=== PATIENT | female | born 1975 | race Caucasian/White ===

== ENCOUNTER → 2021-02-17 10:12 | Outpatient (BNVA) | payer MEDICARE, MEDICAID, SELFPAY | PROVIDERS: Visit Provider Physician Assistant | DX: M77.11 Lateral epicondylitis, right elbow (principal); M77.01 Medial epicondylitis, right elbow | CPT/HCPCS: 20551; 99202; J1020 ==

== ENCOUNTER → 2021-05-03 13:14 | Outpatient (BNVA) | payer MEDICARE, MEDICAID, SELFPAY | PROVIDERS: PCP Pediatrics; Visit Provider Physician Assistant | DX: M77.10 Lateral epicondylitis, unspecified elbow (principal) | CPT/HCPCS: 99212 ==

== ENCOUNTER 2021-06-15 14:00 | Outpatient (RCR) | payer MEDICARE, MEDICAID, SELFPAY | END 2022-03-20 11:37 | disposition home or self-care (01) | LOC: HO.OT 14:00 | PROVIDERS: PCP Pediatrics; Visit Provider Physician Assistant | DX: M77.10 Lateral epicondylitis, unspecified elbow (principal) | CPT/HCPCS: 29125; 97035; 97110; 97165; 97760 ==

== ENCOUNTER 2023-11-28 10:49 | Outpatient (AMB) | payer MEDICARE, MEDICAID, SELFPAY ==
--- NOTE | 2023-11-28 10:51 | MHC.OFFVIS ---
Intake Intake Visit Reasons: OV-B/L elbow injection-last inj. 05/03/21 Intake Note: Yandy a 48 year old female presents today for a follow up of bilateral elbow, last right elbow injection 05/03/21. Patient reports injection provided her good relief until about a month ago. She has complaints of bilateral elbow pain for about a month and is requesting cortisone injections. Patient also has complaints of bilateral shoulder pain with her right shoulder being the worse. Hx of rt RTC on 01/28/20 with KI at [facility]. States constant irritation, limited ROM and intermittent numbness. Allergies cephalexin [From KEFLEX] Allergy (Intermediate, Unverified 11/28/23 10:53) HIVES Penicillins Allergy (Intermediate, Unverified 11/28/23 10:53) HIVES TAPE,PAPER Allergy (Intermediate, Uncoded 11/28/23 10:53) REDNESS keflex Allergy (Unknown, Uncoded 11/28/23 10:53) unknown paper tape Allergy (Unknown, Uncoded 11/28/23 10:53) Unknown penicillin Allergy (Unknown, Uncoded 11/28/23 10:53) Unknown HPI OV-B/L elbow injection-last inj. 05/03/21 HPI Details 48-year-old female who returns to the office today for a follow-up of bilateral elbow pain for a month. She had her last right elbow injection on 05/03/21 which provided her good relief until about a month ago. 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 She also c/o numbness and tingling in her which radiates from her elbow up to her shoulder. Her numbness is worsened with being relaxed while watching TV. She is interested in having bilateral elbow injections. She also reports she has pain, achiness, weakness and limited ROM in her bilateral shoulders which is worse on her right shoulder. She finds difficulty with overhead reaching. She has a history of RTC [place] [address] Gramaoj. She does not have a history of diabetes. 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 No erythema or swelling. ROM full without pain. Tenderness over the lateral epicondyle and pain with resisted wrist extension. NVI. Bilateral shoulder normal to inspection. Tenderness over the bicipital groove and along the deltoid region of the shoulder. Forward flexion to 175, external rotation to 90, internal rotation to S1. 5/5 RTC strength. Positive Gaona. NVI. Office Procedures Joint Injection/Drain Joint Injection/Drain Primary Site: left tennis elbow Secondary Site: right tennis elbow Prep: site was prepped using aseptic technique, ethochloride spray was applied and injection warnings given Injected: 40 mg of, 1% plain lidocaine and decadron Procedure: The patient tolerated the procedure well and there was some relief with the local anesthesia Coding 60244 - Epicondyle Procedure code (CPT) selection complete Assessment & Plan Assessment & Plan (1) Tennis elbow: Code(s): M77.10 - Lateral epicondylitis, unspecified elbow Qualifiers: Laterality: bilateral Qualified Code(s): M77.11 - Lateral epicondylitis, right elbow; M77.12 - Lateral epicondylitis, left elbow (2) Tendinitis of right rotator cuff: Code(s): M75.81 - Other shoulder lesions, right shoulder Plan We discussed options today which include steroid injection. They did consent to move forward with the bilateral elbow injection, which was tolerated well. I recommended rest, ice and elevation and OTC anti-inflammatories PRN for discomfort. If symptoms persist or worsens over the next 6-8 weeks, patient will contact the office. She was also given a handout of home exercises for her elbow and I did explain that modification of activities is important in reducing flareups. She was referred to a course of physical therapy for her bilateral shoulder. If she continues to have discomfort in her shoulder and limitations with activities, she will contact the office for an MRI, otherwise she will follow-up as needed. Orders: Orders PT Evaluation and Treatment Today M75.81 - Other shoulder lesions, right shoulder Patient Instructions: Scribed for Erin Alcazar PA-C, by Mahendra Hayden medical service representative, on 11/28/2023 at 10:45 AM BRIAN. Erin Locke PA-C, have personally reviewed and agree with the information entered by the scribe. Coding Level of Care Code Est Pt Level 3 (23935) Diagnoses Lateral epicondylitis of both elbows M77.11; M77.12 Laterality: bilateral Tendinitis of right rotator cuff M75.81 CPT Codes Coding - Joint 2: 11090 - Epicondyle ([id number])
== END 2023-11-28 11:33 | disposition home or self-care (01) ==
PROVIDERS: PCP Pediatrics; Visit Provider Physician Assistant
DX: M77.11 Lateral epicondylitis, right elbow (principal); M77.12 Lateral epicondylitis, left elbow; M75.81 Other shoulder lesions, right shoulder
CPT/HCPCS: 20550; 99213

== ENCOUNTER → 2023-11-28 10:49 | Outpatient (BNVA) | payer MEDICARE, MEDICAID, SELFPAY | PROVIDERS: PCP Pediatrics; Visit Provider Physician Assistant | DX: M77.11 Lateral epicondylitis, right elbow (principal); M77.12 Lateral epicondylitis, left elbow; M75.81 Other shoulder lesions, right shoulder | CPT/HCPCS: 20550; 99212; J1100 ==

== ENCOUNTER 2024-01-09 10:00 | Outpatient (RCR) | payer MEDICARE, MEDICAID, SELFPAY ==
--- NOTE | 2023-12-17 13:02 | MHC.PT.EP ---
[facility] [place] Office [place] Office [place] Office [address] Tomas Jordan [address] [phone] F: [phone] F: [phone] F: [phone] F: [phone] Physical Therapy Plan of Care Date of Evaluation: 12/16/23 Date of Surgery: Diagnosis: B shoulder pain Assessment: Pt is a 48yo female who presents with B shoulder pain, noted to have significant postural impairments. Skilled PT indicated to reduce pain, promote B shoulder ROM, improved cervicothoracic posture, and teach HEP to maintain mobility independently. Pt is motivated to participate with goal to reduce shoulder pain to improve her mobility especially when she works. Frequency and Duration: The patient will be seen 2x/week, x 4 weeks Short Term Goals: 1. In 2 weeks, patient will be I with phase 1 HEP including ROM, isometrics, and postural corrections. 2. In 2 weeks, patient will improve B shoulder elevation 10 degrees. 3. In 2 weeks, patient will be able to maintain SRD b/l during resisted ER and periscap exercise. Health Care Coach Goals: 1. In 4 weeks, patient will be able to hold cervicothoracic posture in neutral during standing exercise x 5 minutes. 2. In 4 weeks, patient will report >=50% decrease of pain B shoulders. 3. 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 Treatment Plan: Modalities to reduce pain, spasms and effusion. Manual therapy to restore motion and function. Therapeutic exercise to improve strength and flexibility. Neuromuscular re-education for posture and balance. Therapeutic activities to return to functional activities of daily living. Electronically signed by: Julissa Duong PT, DPT Please sign and return to therapist. Thank you for your referral.
--- NOTE | 2024-04-27 13:19 | MHC.PT.DC ---
[facility] [place] Office [place] Office [place] Office [address] Tomas Jordan [address] [phone] F: [phone] F: [phone] F: [phone] F: [phone] Physical Therapy Discharge Report Diagnosis: B shoulder pain Date of Surgery: Date of Evaluation: 12/16/23 Date of Discharge: 01/09/24 Treatments to Date: 8 Cancellations to Date: 1 No Shows to Date: Discharge Status: Achieved Goals Improved Function Independent with HEP Discharge Summary: Pt referred to PT for B shoulder pain. Focus of PT sessions including postural correction exercises, periscap strengthening, and improvement in body mechanics. Pt with good compliance with postural corrections at home. ER L shoulder improved to 50 degrees. Reduced pain and improved exercise lj on this date. Pt recommended to continue with HEP to manage symptoms, and to continue to address posture. D/C to HEP at this time. Thank you for this referral. Electronically signed by: Julissa Duong PT, DPT Please sign and return to therapist. Thank you for your referral.
== END 2024-04-27 13:19 | disposition home or self-care (01) ==
LOC: HO.PT 10:00
PROVIDERS: PCP Pediatrics; Visit Provider Physician Assistant
DX: M75.81 Other shoulder lesions, right shoulder (principal)
CPT/HCPCS: 97110; 97140; 97162; 97530

== ENCOUNTER 2024-02-12 13:33 | Outpatient (REF) | payer MEDICARE, MEDICAID, SELFPAY ==
--- NOTE | ~2024-02-12 | XR_ITS ---
EXAMINATION: XR SHOULDER, RIGHT CLINICAL INFORMATION: Right shoulder pain COMPARISON: None available. TECHNIQUE: AP external rotation, Grashey, scapular Y, and axillary views of the right shoulder. FINDINGS: There is productive change about the greater tuberosity but no fracture, dislocation or destructive process or erosive change. XR/XR shoulder RT min 2V IMPRESSION: Mild degenerative change along the superior lateral margin of the humeral head.
== END 2024-02-12 13:34 | disposition home or self-care (01) ==
LOC: HO.HOSX 13:33
PROVIDERS: PCP Pediatrics; Visit Provider Physician Assistant
DX: M25.511 Pain in right shoulder (principal); M75.81 Other shoulder lesions, right shoulder
CPT/HCPCS: 20610; 73030; 99212; J1040; J1100

== ENCOUNTER 2024-02-12 13:33 | Outpatient (AMB) | payer MEDICARE, MEDICAID, SELFPAY ==
--- NOTE | 2024-02-12 13:37 | MHC.OFFVIS ---
Intake Intake Visit Reasons: OV - right shoulder tendinitis Intake Note: Yandy is a 48 year old right hand dominant female who presents today for a follow up of her left shoulder tendinitis. Patient states that her pain has gotten a bit worse after going to PT. She reports that her pain is moving down to her elbow. Patient finds relief with icing. Allergies cephalexin [From KEFLEX] Allergy (Intermediate, Unverified 11/28/23 10:53) HIVES Penicillins Allergy (Intermediate, Unverified 11/28/23 10:53) HIVES TAPE,PAPER Allergy (Intermediate, Uncoded 11/28/23 10:53) REDNESS keflex Allergy (Unknown, Uncoded 11/28/23 10:53) unknown paper tape Allergy (Unknown, Uncoded 11/28/23 10:53) Unknown penicillin Allergy (Unknown, Uncoded 11/28/23 10:53) Unknown HPI OV - right shoulder tendinitis HPI Details 48-year-old right hand dominant female who returns to the office today for a follow-up of right shoulder pain. She continues to have pain in her shoulder which has been moving down to her elbow. She states she has had undergone physical therapy which made her pain a bit worse. She finds relief with icing. She had an elbow injection in the past. She has no other concerns today. 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 Tenderness over the bicipital groove and along the deltoid region of the shoulder. Forward flexion to 175, external rotation to 90, internal rotation to S1. 5/5 RTC strength. Negative Gaona and cross body abduction. NVI. Office Procedures Joint Injection/Drain Joint Injection/Drain Primary Site: right shoulder Prep: site was prepped using aseptic technique, ethochloride spray was applied and injection warnings given Injected: 80 mg of, DepoMedrol, with 8 mL of, 1% plain lidocaine and in the subcromial space Approach Used: posterolateral Procedure: The patient tolerated the procedure well and there was some relief with the local anesthesia Coding 15266 - Glenohumeral/Tronchanteric Bursa/Intraarticular Procedure code (CPT) selection complete Results Reviewed Results Reviewed: Xrays were obtained in the office today and personally reviewed by me show well preserved joint space Assessment & Plan Assessment & Plan (1) Tendinitis of right rotator cuff: Code(s): M75.81 - Other shoulder lesions, right shoulder Plan We discussed options today which include steroid injection. They did consent to move forward with the right shoulder injection, which was tolerated well. I recommended rest, ice and elevation and OTC anti-inflammatories PRN for discomfort. If symptoms persist or worsens over the next 6-8 weeks, patient will contact the office, otherwise follow-up as needed. Orders: Orders XR shoulder RT min 2V Today M25.511 - Pain in right shoulder Patient Instructions: Scribed for Erin Alcazar PA-C, by Mahendra Hayden director medical surgical, on 02/12/2024 at 1:30 PM EST. Erin Locke PA-C, have personally reviewed and agree with the information entered by the scribe. Coding Level of Care Code Est Pt Level 3 (19245) Diagnoses Tendinitis of right rotator cuff M75.81 CPT Codes Coding - Joint 7: 74016 - Glenohumeral/Tronchanteric Bursa/Intraarticular ([id number])
== END 2024-02-12 15:16 | disposition home or self-care (01) ==
PROVIDERS: PCP Pediatrics; Visit Provider Physician Assistant
DX: M75.81 Other shoulder lesions, right shoulder (principal)
CPT/HCPCS: 20610; 99213

== ENCOUNTER 2024-05-06 12:58 | Outpatient (AMB) | payer MEDICARE, MEDICAID, SELFPAY ==
--- NOTE | 2024-05-06 13:14 | A.OFFVIS_ITS ---
Vital Signs 05/06/24 13:17 Height 5 ft 5 in Weight 219 lb BMI 36.4 Intake Visit Reasons: OV - RT shoulder pain, worsened after lifting box Intake Note: Yandy is a 48 year old right hand dominant female who presents today for a follow up of her right shoulder. Patient reports an increase of pain with lifting a box about 2-3 weeks ago. She currently has constant achy discomfort that is radiating into her elbow. States no strength in her arm. Denies numbness and tingling. Finds little to no relief with taking Tylenol and Advil, states she is not suppose to be taking Advil however this provides her with some relief. Allergies cephalexin [From KEFLEX] Allergy (Intermediate, Unverified 05/06/24 13:20) HIVES Penicillins Allergy (Intermediate, Unverified 05/06/24 13:20) HIVES TAPE,PAPER Allergy (Intermediate, Uncoded 05/06/24 13:20) REDNESS keflex Allergy (Unknown, Uncoded 05/06/24 13:20) unknown paper tape Allergy (Unknown, Uncoded 05/06/24 13:20) Unknown penicillin Allergy (Unknown, Uncoded 05/06/24 13:20) Unknown Medication List - Last Reconciled 05/06/24 by Erin Alcazar PA-C aripiprazole (Abilify) 30 mg PO DAILY buprenorphine-naloxone 8-2 mg (Suboxone) 1 film buccal DAILY dextroamphetamine-amphetamine 20 mg (Adderall) 20 mg PO DAILY dextroamphetamine-amphetamine 30 mg (Adderall) 30 mg PO DAILY omeprazole 40 mg PO BID HPI HPI OV - RT shoulder pain, worsened after lifting box: Details: 49-year-old right hand dominant female who returns to the office today for a follow-up of right shoulder pain. She reports her pain worsened after lifting a box about 2-3 weeks ago. She currently states she has constant achy discomfort that radiates down into her elbow. She feels no strength in her arm. She denies any numbness or tingling. She finds minimal relief with Tylenol and Advil. 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 Tenderness along the proximal bicep tendon around the extensor muscle belly of the bicep. Forward flexion to 175, external rotation to 90, internal rotation to S1. Pain and weakness with RTC strength when compared to contralateral side. Negative Gaona and cross body abduction. NVI. Assessment & Plan Assessment & Plan (1) Tendinitis of right rotator cuff: Code(s): M75.81 - Other shoulder lesions, right shoulder Category: Medical Plan An MRI of the right shoulder was ordered to further evaluate the extent of her RTC. She will see me back once the scan is complete. Orders: Orders MR shoulder RT wo con 05/06/24 M77.8 - Other enthesopathies, not elsewhere classified Patient Instructions: Scribed for Erin Alcazar PA-C, by Mahendra Hayden medical oncology physician, on 05/06/2024 at 12:45 PM EST.? I, Erin Alcazar PA-C, have personally reviewed and agree with the information entered by the scribe. Coding Level of Care Code Est Pt Level 3 (02311) Diagnoses Tendinitis of right rotator cuff M75.81
[2024-05-06 13:17] VITALS: BMI 36.4
== END 2024-05-06 14:27 | disposition home or self-care (01) ==
PROVIDERS: PCP Pediatrics; Visit Provider Physician Assistant
DX: M75.81 Other shoulder lesions, right shoulder (principal)
CPT/HCPCS: 99213

== ENCOUNTER → 2024-05-06 12:58 | Outpatient (BNVA) | payer MEDICARE, MEDICAID, SELFPAY | PROVIDERS: PCP Pediatrics; Visit Provider Physician Assistant | DX: M75.81 Other shoulder lesions, right shoulder (principal) | CPT/HCPCS: 99212 ==

== ENCOUNTER 2024-05-20 07:47 | Outpatient (REF) | payer MEDICARE, MEDICAID, SELFPAY ==
--- NOTE | ~2024-05-20 | XR_ITS ---
EXAMINATION: XR CLAVICLE, LEFT CLINICAL INFORMATION: Fracture. COMPARISON: None available. TECHNIQUE: Two views of the left clavicle. FINDINGS: Oblique fracture through the middle third of the left clavicle with superior displacement of the proximal fracture fragment measuring up to 2.6 cm in craniocaudal dimension. No new bone/callus formation. No acromioclavicular joint space widening. No joint space narrowing or marginal osteophytes. No osseous erosion. No abnormal soft tissue calcification. XR/XR clavicle LT IMPRESSION: Displaced fracture through the middle third of the left clavicle.
== END 2024-05-20 07:48 | disposition home or self-care (01) ==
LOC: HO.HOSX 07:47
DX: S42.022A Displaced fracture of shaft of left clavicle, initial encounter for closed fracture (principal)
CPT/HCPCS: 73000

== ENCOUNTER 2024-05-20 11:35 | Outpatient (AMB) | payer OTHER, MEDICARE, MEDICAID, SELFPAY ==
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
== END 2024-05-20 12:38 | disposition home or self-care (01) ==
PROVIDERS: PCP Pediatrics
DX: S42.022A Displaced fracture of shaft of left clavicle, initial encounter for closed fracture (principal)
CPT/HCPCS: 99204

== ENCOUNTER 2024-05-22 11:59 | Day surgery (SDC) | payer MEDICARE, MEDICAID, SELFPAY ==
[2024-05-22] VITALS (7 sets, daily range): BP systolic 125–146; BP diastolic 61–85; PULSE 77–87; RESP 15–18; TEMP 36.2–37.2; O2SAT 97–99; BMI 30.8
--- NOTE | ~2024-05-22 | FL_ITS ---
EXAMINATION: XR FLUOROSCOPY WITH IMAGES CLINICAL INFORMATION: Left clavicle ORIF. COMPARISON: None available. TECHNIQUE: Fluoroscopy Supervised By: Dr. Sarkis Canales. Fluoroscopy Time: 0.2 minutes. Cumulative Dose: 2.09 mGy. DAP: 0.0363 Gycm2. Images: 6. FINDINGS: Intraoperative fluoroscopy and spot films were performed during a procedure in the OR. Sequential imaging demonstrates a plate and screw device overlying the mid left clavicular fracture. Please correlate with Dr. Canales's report for complete details. FL/FL guidance in OR IMPRESSION: Intraoperative fluoroscopy and spot films were obtained. Please see Dr. Canales's report for complete details.
[2024-05-22 12:51] LABS: UPreg QC Valid YES; Urine Pregnancy NEGATIVE (NEGATIVE)
[2024-05-22] MEDS: Lactated Ringers 1,000 ML 50 ML IVCONT (13:07)
--- NOTE | 2024-05-22 13:17 | HO.ANESPROP2 ---
[facility] Active Problems Active Problems: All Active Problems Closed left clavicular fracture (Acute) Tendinitis of right rotator cuff (Acute) Golfers elbow (Acute) Tennis elbow (Acute) Past Medical History Medical History (Updated 05/22/24 @ 12:36 by Chayo Chiu RN) Hernia Perforated intestine, nontraumatic Internal hernia Rupture of small intestine ADHD Bipolar 1 disorder Stomach ulcer Family History Family history of problems with anesthesia: No Surgical History Surgical History (Updated 05/22/24 @ 12:35 by Chayo Chiu RN) H/O: knee surgery S/P rotator cuff repair Hx of cholecystectomy H/O gastric bypass History of Problems with Anesthesia: No Social History Social History Patient Tobacco Use Status: Current everyday Tobacco user Tobacco use type: Cigarette Cigarettes Per Day: 5 Use of substances other than those prescribed or required for medical reasons: No Are you DNR?: No Advance Directives: No Advance Directives Information Provided: Yes Current occupational status: employed 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[employer], 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[employer], 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 [employer] Allergies Allergy/AdvReac Type Severity Reaction Status Date / Time cephalexin [From KEFLEX] Allergy Intermediate HIVES Verified 05/22/24 12:51 Penicillins Allergy Intermediate HIVES Verified 05/22/24 12:51 TAPE,PAPER Allergy Intermediate REDNESS Uncoded 05/20/24 11:48 Active Medications: Current Medications Lactated Ringer's (Lr) 1,000 mls @ 50 mls/hr IVCONT .Q20H MARY Last Admin: 05/22/24 13:07 Dose: 50 mls/hr Home Medications ?Medication ?Instructions ?Recorded ?Confirmed ?Last Taken ?Type aripiprazole 30 mg tablet (Abilify) 30 mg PO DAILY 02/17/21 05/06/24 Unknown History dextroamphetamine-amphetamine 20 20 mg PO DAILY 02/17/21 05/06/24 Unknown History mg tablet (Adderall) dextroamphetamine-amphetamine 30 30 mg PO DAILY 02/17/21 05/06/24 Unknown History mg tablet (Adderall) omeprazole 40 mg capsule,delayed 40 mg PO BID 02/17/21 05/22/24 05/22/24 History release Exam Height,Weight and Vital Signs: Height 5 ft 5 in Weight 84.085 kg Last Vital Signs Temp 98.9 F 05/22/24 12:47 Pulse 83 05/22/24 12:47 Resp 16 05/22/24 12:47 BP 134/85 05/22/24 12:47 Pulse Ox 98 05/22/24 12:47 O2 Del Method Room Air 05/22/24 12:47 Pertinent Lab Results Pertinent Lab Results: Laboratory Tests 05/22/24 12:26 Urine Test NEGATIVE Airway Mallampati Class: II (loose top left front tooth, aware that with intubTion tooth could come out) TM Dist: >3cm Neck ROM: Full Heart: rrr Lungs: cta Assessment and Plan Assessment Anesthesia Assessment: Anesthesia Plan Discussed and Chart Reviewed Final Anesthetic Review Family History of Problems with Anesthesia: No History of Problems with Anesthesia: No NPO: Yes ASA Class: II Final Preanesthetic Review: No Changes in Pt Med Stat, Meds/Allgs Chart Reviewed and Consent Obtained/Reviewed Patient Risk: Low Procedure Risk: Intermediate Anesthetic Plan Anesthetic Plan: GA Disposition: Standard PACU
--- NOTE | 2024-05-22 13:23 | MHC.SHP ---
Pre-Procedural Eval Section A - 24 Hr Update-Section A only Date of Service: 05/22/24 The patient is an INPATIENT: No Changes since office visit: Yes Cold of Flu in the past 2 weeks, Yes New Medical Problems, Yes Changes in Medication and Yes Patient answered all questions The patient has been examined within 24 hours of the surgical procedure. The History & Physical has been completed within 30 days and I have reviewed it.: Yes Section B - Complete if H&P > 30 days Chief Complaint: Fracture of unspecified part of left clavicle, Allergies: Allergies Allergy/AdvReac Type Severity Reaction Status Date / Time cephalexin [From KEFLEX] Allergy Intermediate HIVES Verified 05/22/24 12:51 Penicillins Allergy Intermediate HIVES Verified 05/22/24 12:51 TAPE,PAPER Allergy Intermediate REDNESS Uncoded 05/20/24 11:48 Plan I have reviewed the history and physical and performed a pertinent physical examination on my patient. No changes have occurred unless specified. Time Spent With Patient Time: Total time managing care of this patient today ____ minutes.
--- NOTE | 2024-05-22 15:23 | PM.OP ---
Brief Operative Note Date of Service: 05/22/24 Pre-op diagnosis: left clavicle fx Post-op diagnosis: same Procedure: ORIF left clavicle Implants: Kelly superior clavicle plate Surgeon: Sarkis Canales MD Anesthesia: GETA and local Was an Braille Proofreader used for this Procedure?: No Estimated blood loss (mL): 50 IV fluids (mL): 750 Pathology: none sent Condition: stable Disposition: PACU
[2024-05-22] MEDS: Ketorolac Tromethamine 15 MG/ML VIAL IVPUSH (15:46)
--- NOTE | 2024-06-04 09:23 | P.OP_ITS ---
Operative Note Operative Note Date of Service: 05/22/24 Narrative: Date of Service: 05/22/24 Pre-op diagnosis: left clavicle fx Post-op diagnosis: same Procedure: ORIF left clavicle Implants: Kelly superior clavicle plate Surgeon: Sarkis Canales MD Anesthesia: GETA and local Was an Building Associate used for this Procedure?: No Estimated blood loss (mL): 50 IV fluids (mL): 750 Pathology: none sent Condition: stable Disposition: PACU Patient was brought to the operating room and placed in the beach chair position on the surgical table. The site was prepped and draped in standard sterile fashion and a time out was called to identify proper site, proper procedure and IV antibiotics per weight were administered. I began by making a superior incision over the clavicle. Once through skin Littler scissors were used to dissect through the clavicular fascia. The medial fracture fragment was identified and a lobster claw tenaculum was used to stabilize it. The lateral fracture fragments were then identified and, using a combination of irrigation and sharp debridement, I cleaned up the fracture fragments. This was the shortened but a two part fracture. I was able to obtain an anatomic reduction and an 8 hole platye was selected. I used an additional lobster claw to provisionally reduce the fracture and the plate was placed superiorly and held in place with olive-tipped K-wires while radiographs were obtained. Visually I was satisfied with the fracture reduction and r adiographs demonstrated sufficient length of the plate. I then used standard AO technique to place 4 bicortical screws medial to the fracture and 4 bicortical screws laterally so that the plate spanned the midshaft fracture. Care was taken to not plunge with the drill. Biplanar fluoroscopy was used to confirm appropriate hardware location, fracture reduction and screw length. Once I was satisfied with these parameters I copiously irrigated and closed with absorbable suture, skin glue and Steri-Strips. Patient was placed in sterile dressing and extubated brought to recovery room stable condition there were no known complications.
== END 2024-05-22 16:08 | disposition home or self-care (01) ==
PROVIDERS: Anesthesiology; PCP Pediatrics; Visit Provider Orthopaedic Surgery
PROC: (CPT 23515; principal; 2024-05-22 13:30)
DX: S42.022A Displaced fracture of shaft of left clavicle, initial encounter for closed fracture (principal); V49.88XA Car occupant (driver) (passenger) injured in other specified transport accidents, initial encounter; Y93.89 Activity, other specified; Y92.411 Interstate highway as the place of occurrence of the external cause; Y99.8 Other external cause status; F90.9 Attention-deficit hyperactivity disorder, unspecified type; F31.9 Bipolar disorder, unspecified; Z98.84 Bariatric surgery status; Z98.890 Other specified postprocedural states; F17.210 Nicotine dependence, cigarettes, uncomplicated
CPT/HCPCS: 23515; 81025; C1713; J0330; J0736; J1100; J1885; J2250; J2405; J2704; J2795; J3010

== ENCOUNTER → 2024-05-22 11:59 | Outpatient (BNV) | payer MEDICARE, MEDICAID, SELFPAY | PROVIDERS: PCP Pediatrics; Visit Provider Orthopaedic Surgery | DX: S42.022A Displaced fracture of shaft of left clavicle, initial encounter for closed fracture (principal) | CPT/HCPCS: 23515 ==

== ENCOUNTER 2024-05-27 13:10 | Outpatient (REF) | payer MEDICARE, MEDICAID, SELFPAY | END 2024-05-27 13:11 | disposition home or self-care (01) | LOC: HO.HOSX 13:10 | PROVIDERS: Visit Provider Physician Assistant | DX: Z13.89 Encounter for screening for other disorder (principal) ==

== ENCOUNTER 2024-05-28 14:30 | Outpatient (AMB) | payer OTHER, MEDICARE, MEDICAID, SELFPAY ==
--- NOTE | 2024-05-28 14:59 | MHC.OFFVIS ---
Intake Visit Reasons: PO LT clavicle ORIF 05/22/24 NE Intake Note: Yandy a 49 year old female who presents today for a post operative visit s/p left clavicle ORIF on 05/22/24 NE. Patient reports she is doing well, states pain has been tolerable however she is concerned of numbness around incision area. Allergies cephalexin [From KEFLEX] Allergy (Intermediate, Verified 05/28/24 15:04) HIVES Penicillins Allergy (Intermediate, Verified 05/28/24 15:04) HIVES TAPE,PAPER Allergy (Intermediate, Uncoded 05/28/24 15:04) REDNESS HPI HPI PO LT clavicle ORIF 05/22/24 NE: Details: 49-year-old right hand dominant female who presents in the office today 6 days status post left clavicle ORIF, which was performed on 05/22/[address] Canales. ? ? While in the office today, the patient reports she is doing well. She states her pain has been tolerable. However, she is concerned about numbness around the incision site. ? 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 Some moisture was noted from sweat over the incision site saturating the steri-stripes. Forward flexion and abduction to 45 degrees. No surrounding erythema or drainage. No signs of infection. The patient does reports numbness from the mid-sternum laterally to the left shoulder. ? Assessment & Plan Assessment & Plan (1) Closed left clavicular fracture: Code(s): S42.002A - Fracture of unspecified part of left clavicle, initial encounter for closed fracture Category: Medical Qualifiers: Clavicle location: shaft Encounter type: initial encounter Fracture alignment: displaced Qualified Code(s): S42.022A - Displaced fracture of shaft of left clavicle, initial encounter for closed fracture Plan Ms. Roa is a 49-year-old right hand dominant female who presents in the office today 6 days status post left clavicle ORIF, which was performed on 05/22/[address] Canales. ? ? While in the office today, the patient reports she is doing well. She states her pain has been tolerable. However, she is concerned about numbness around the incision site.? ? I educated the patient on the importance of keeping the incision site dry. While in the office we applied gauze and Tegaderm to the incision site and she was supplied for twice daily dressing change for the next week until her follow-up. ? ? Of note: the patient is high risk of infection if she is unable to keep the site clean, dry, and intact. ? ? Follow-up will be in one week for a wound check, or sooner if needed.? ? X-rays of the left clavicle which were obtained while in the office today and were reviewed by me, Carissa Christina PA-C, revealed intact orthopedic hardware.? Orders: Orders XR clavicle LT 05/28/24 S42.022A - Displaced fracture of shaft of left clavicle, initial encounter for closed fracture Patient Instructions: Scribed by Isabel Gamez medical staff specialist, for Carissa Christina PA-C on 05/28/2024 at 3:53 pm, EST.? Coding Level of Care Code Global (50774) Diagnoses Closed displaced fracture of shaft of left clavicle, initial encounter S42.022A Clavicle location: shaft Encounter type: initial encounter Fracture alignment: displaced
== END 2024-05-28 15:19 | disposition home or self-care (01) ==
PROVIDERS: PCP Pediatrics; Visit Provider Physician Assistant
DX: S42.022A Displaced fracture of shaft of left clavicle, initial encounter for closed fracture (principal)
CPT/HCPCS: 99024

== ENCOUNTER 2024-05-28 14:33 | Outpatient (REF) | payer MEDICARE, MEDICAID, SELFPAY ==
--- NOTE | ~2024-05-28 | XR_ITS ---
EXAMINATION: XR CLAVICLE, LEFT CLINICAL INFORMATION: Left clavicular fracture. COMPARISON: Left clavicle radiograph dated 06/16/2024. TECHNIQUE: Two views of the left clavicle. FINDINGS: Interval placement of a dorsal stabilization plate with fixation screws across the previously seen midshaft left clavicular fracture which now appears in near-anatomic alignment. Small persistent osseous fragment inferior to the fracture line measuring up to 0.4 cm. No hardware fracture or perihardware lucency to suggest loosening or infection. XR/XR clavicle LT IMPRESSION: 1. Left clavicular ORIF without evidence of hardware complication. 2. Mid shaft left clavicular fracture in near-anatomic alignment.
== END 2024-05-28 14:34 | disposition home or self-care (01) ==
LOC: HO.HOSX 14:33
PROVIDERS: Visit Provider Physician Assistant
DX: S42.022A Displaced fracture of shaft of left clavicle, initial encounter for closed fracture (principal)
CPT/HCPCS: 73000

== ENCOUNTER 2024-06-04 09:33 | Outpatient (AMB) | payer MEDICARE, MEDICAID, SELFPAY ==
--- NOTE | 2024-06-04 09:38 | MHC.OFFVIS ---
Intake Visit Reasons: PO LT RTC 04/22/24 NE- wound check Intake Note: Yandy a 49 year old right hand dominant female who presents today for a wound check visit s/p left clavicle ORIF on 05/22/24 NE. Patient reports she is doing well. She states just having some soreness. Bandage was removed and the incision site is clean, dry and intact. Allergies cephalexin [From KEFLEX] Allergy (Intermediate, Verified 05/28/24 15:04) HIVES Penicillins Allergy (Intermediate, Verified 05/28/24 15:04) HIVES TAPE,PAPER Allergy (Intermediate, Uncoded 05/28/24 15:04) REDNESS HPI HPI PO LT RTC 04/22/24 NE- wound check: Details: 49-year-old right hand dominant female who presents in the office today for a wound check; 6 weeks status post left clavicle ORIF, which was performed on 05/22/[address] Canales. I last saw the patient in the office on 05/28/2024 when the incision site was dressed, and she was given supplies for twice daily dressing changes. ? While in the office today, the patient reports she is doing well. She confirms having mild soreness. ? 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 Steri-stripes are intact. No surrounding erythema or drainage. No signs of infection. Forward flexion lacking 45 degrees. Abduction to 90 degrees. NVI.? Assessment & Plan Assessment & Plan (1) Closed left clavicular fracture: Comment: Left clavicle ORIF 05/22/2024 NE Code(s): S42.002A - Fracture of unspecified part of left clavicle, initial encounter for closed fracture Category: Surgical Qualifiers: Clavicle location: shaft Encounter type: initial encounter Fracture alignment: displaced Qualified Code(s): S42.022A - Displaced fracture of shaft of left clavicle, initial encounter for closed fracture Plan Ms. Roa is a 49-year-old right hand dominant female who presents in the office today for a wound check; 6 weeks status post left clavicle ORIF, which was performed on 05/22/[address] Canales. I last saw the patient in the office on 05/28/2024 when the incision site was dressed, and she was given supplies for twice daily dressing changes. ?? ? While in the office today, the patient reports she is doing well. She confirms having mild soreness. ?? ? The incision site will no longer be covered. She can shower and allow the water to run over the site. She will allow the steri-stripes to fall off on their own. She will begin to work with physical therapy in one to two weeks. However, she will continue to work on pendulum exercises at home. Follow-up will be in four weeks with repeat x-rays, or sooner if needed. ? Orders: Orders PT Evaluation and Treatment Today S42.022A - Displaced fracture of shaft of left clavicle, initial encounter for closed fracture Patient Instructions: Scribed by Isabel Gamez medical historian, for Carissa Christina PA-C on 06/04/2024 at 9:39 am, EST.? Coding Level of Care Code Global (50255) Diagnoses Closed displaced fracture of shaft of left clavicle, initial encounter S42.022A Clavicle location: shaft Encounter type: initial encounter Fracture alignment: displaced
== END 2024-06-04 09:57 | disposition home or self-care (01) ==
PROVIDERS: PCP Pediatrics; Visit Provider Physician Assistant
DX: S42.022A Displaced fracture of shaft of left clavicle, initial encounter for closed fracture (principal)
CPT/HCPCS: 99024

== ENCOUNTER → 2024-06-04 09:33 | Outpatient (BNVA) | payer MEDICARE, MEDICAID, SELFPAY | PROVIDERS: PCP Pediatrics; Visit Provider Physician Assistant | DX: S42.002D Fracture of unspecified part of left clavicle, subsequent encounter for fracture with routine healing (principal); X58.XXXD Exposure to other specified factors, subsequent encounter | CPT/HCPCS: 99212 ==

== ENCOUNTER 2024-07-02 09:33 | Outpatient (AMB) | payer MEDICARE, MEDICAID, SELFPAY ==
--- NOTE | 2024-07-02 09:37 | MHC.OFFVIS ---
Intake Visit Reasons: PO - LT RTC 04/22/24 NE Intake Note: Yandy is a 49 year old right hand dominant female who presents today for a post op appointment s/p left clavicle ORIF 05/22/24 NE. Patient reports she is doing well. She states that if she over does it she tends to get a lot of pain. Patient is mentioning concerns of her right arm pain but she has a pending MRI on the 21 of July. Allergies cephalexin [From KEFLEX] Allergy (Intermediate, Verified 05/28/24 15:04) HIVES Penicillins Allergy (Intermediate, Verified 05/28/24 15:04) HIVES poison alex extract Adverse Reaction (Verified 07/02/24 09:45) Rash TAPE,PAPER Allergy (Intermediate, Uncoded 05/28/24 15:04) REDNESS HPI HPI PO - LT RTC 04/22/24 NE: Details: 49-year-old?right hand dominant female who presents in the office today for a wound check; 2 months status post left clavicle ORIF, which was performed on 05/22/[address] Canales.?I last saw the patient in the office on 06/04/24 when she was encouraged to begin to work with physical therapy and to continue to work on pendulum exercises at home. ? ? While in the office today, the patient reports she is doing well. She has declined attending formal physical therapy because she feels that she has ful ROM. ? ? Patient reports right upper extremity pain and is pending an MRI on 07/21/24.? 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 No signs of infection. Full ROM in all planes of the left shoulder. Numbness over the incision site, which comes roughly from the sternum distally to the end of the incision site. Deltoid sensation intact. Assessment & Plan Assessment & Plan (1) Closed left clavicular fracture: Comment: Left clavicle ORIF 05/22/2024 NE Code(s): S42.002A - Fracture of unspecified part of left clavicle, initial encounter for closed fracture Category: Surgical Qualifiers: Clavicle location: shaft Encounter type: initial encounter Fracture alignment: displaced Qualified Code(s): S42.022A - Displaced fracture of shaft of left clavicle, initial encounter for closed fracture Plan Ms. Rao is a 49-year-old?right hand dominant female who presents in the office today for a wound check; 2 months status post left clavicle ORIF, which was performed on 05/22/[address] Canales.?I last saw the patient in the office on 06/04/24 when she was encouraged to begin to work with physical therapy and to continue to work on pendulum exercises at home. ? ? While in the office today, the patient reports she is doing well. She has declined attending formal physical therapy because she feels that she has full ROM. ? Patient reports right upper extremity pain and is pending an MRI on 07/21/24.? ? The patient may return to normal activities as tolerated using pain as her guide. I did caution the patient again heavy lifting. We discussed the role of physical therapy however, due to the patient?s ROM and having very mild discomfort we have agreed to defer at this time. ? ? The patient has a right shoulder MRI pending for 07/21/24. She has been treated by Erin Alcazar PA-C, for this and will follow-up with her after the MRI is obtained, or sooner if needed.? Patient Instructions: Scribed by Isabel Gamez manager medical writing, for Carissa Christina PA-C on 07/02/2024 at 9:36 am, EST.? Coding Level of Care Code Global (05902) Diagnoses Closed displaced fracture of shaft of left clavicle, initial encounter S42.022A Clavicle location: shaft Encounter type: initial encounter Fracture alignment: displaced
== END 2024-07-02 10:05 | disposition home or self-care (01) ==
PROVIDERS: PCP Pediatrics; Visit Provider Physician Assistant
DX: S42.022A Displaced fracture of shaft of left clavicle, initial encounter for closed fracture (principal)
CPT/HCPCS: 99024

== ENCOUNTER → 2024-07-02 09:33 | Outpatient (BNVA) | payer MEDICARE, MEDICAID, SELFPAY | PROVIDERS: PCP Pediatrics; Visit Provider Physician Assistant | DX: S42.022D Displaced fracture of shaft of left clavicle, subsequent encounter for fracture with routine healing (principal); X58.XXXD Exposure to other specified factors, subsequent encounter; Z98.890 Other specified postprocedural states | CPT/HCPCS: 99212 ==

== ENCOUNTER 2024-07-21 11:25 | Outpatient (REF) | payer MEDICARE, MEDICAID, SELFPAY ==
--- NOTE | ~2024-07-21 | MR_ITS ---
EXAMINATION: MR SHOULDER WITHOUT CONTRAST, RIGHT CLINICAL INFORMATION: Enthesopathy not elsewhere classified. Patient reports pain, loss of strength. Patient reports prior rotator cuff repair 2019. COMPARISON: X-ray 02/12/2024. TECHNIQUE: MRI of the shoulder without contrast was performed on a high-field scanner. FINDINGS: ROTATOR CUFF: Postsurgical changes including bone anchors in the lateral humeral head/greater tuberosity. Humerus is externally rotated in positioning. Combination of full-thickness defect and high-grade thinning of the supraspinatus measuring 2 cm AP, up to 4 cm medial-lateral. There is tendinosis and thinning of the residual fibers of the supraspinatus and infraspinatus tendons. Teres minor is intact. Moderate subscapularis tendinosis, deep surface fraying. Mild supraspinatus, mild-moderate infraspinatus muscle atrophy. BICEPS: Biceps tendinosis and partial tearing. CORACOACROMIAL ARCH: The undersurface of the acromion is curved with no subacromial spur. Moderate acromioclavicular osteoarthritis. LABRUM/CAPSULE: Linear T2 signal in the superior labrum, suspicious for a tear. Degeneration and probable fraying/tearing of the posterosuperior labrum. GLENOHUMERAL JOINT/MARROW: Proximally, there are postsurgical changes as above. Mild glenohumeral joint arthritis. Small effusion. Low signal focus in the subscapularis recess, probably loose body. MR/MR shoulder RT wo con IMPRESSION: 1. Postsurgical changes. 2 x 4 cm area of combination of full-thickness discontinuity and high-grade thinning of the supraspinatus tendon. Tendinosis and thinning of the residual fibers of the supraspinatus and infraspinatus tendons. 2. Moderate subscapularis tendinosis, deep surface fraying. 3. Biceps tendinosis and partial tearing. 4. Findings suspicious for a superior labral tear. Degeneration and probable fraying/tearing of the posterosuperior labrum. 5. Mild glenohumeral joint arthritis. Small effusion. Probable loose body in the subscapularis recess. 6. Moderate acromioclavicular arthritis. Electronically signed by: Jerod Moore MD 07/24/2024 03:53 PM EDT
== END 2024-07-21 11:26 | disposition home or self-care (01) ==
LOC: HO.MRI 11:25
PROVIDERS: PCP Pediatrics; Visit Provider Physician Assistant
DX: M77.8 Other enthesopathies, not elsewhere classified (principal)
CPT/HCPCS: 73221

== ENCOUNTER 2024-07-29 13:07 | Outpatient (AMB) | payer MEDICARE, MEDICAID, SELFPAY ==
--- NOTE | 2024-07-29 13:09 | A.OFFVIS_ITS ---
Intake Visit Reasons: OV - Rt shoulder MRI review Intake Note: Yandy a 49 year old female who presents today for follow up to review MRI of right shoulder. Patient reports her pain has been constant and getting worse. Her pain gets worse in the mornings and at night. No relief with taking Tylenol and Aleve as well as applying ice and heat. Allergies cephalexin [From KEFLEX] Allergy (Intermediate, Verified 07/29/24 13:14) HIVES Penicillins Allergy (Intermediate, Verified 07/29/24 13:14) HIVES poison alex extract Adverse Reaction (Verified 07/29/24 13:14) Rash TAPE,PAPER Allergy (Intermediate, Uncoded 07/29/24 13:14) REDNESS Medication List - Last Reconciled 07/29/24 by Erin Alcazar PA-C aripiprazole (Abilify) 30 mg PO DAILY dextroamphetamine-amphetamine 20 mg (Adderall) 20 mg PO DAILY dextroamphetamine-amphetamine 30 mg (Adderall) 30 mg PO DAILY omeprazole 40 mg PO BID oxycodone-acetaminophen 5-325 mg (Percocet) 1 tab PO Q6H PRN 10 days HPI HPI OV - Rt shoulder MRI review: Details: 49-year-old female who returns to the office today for an MRI review of right shoulder. She states she has constant worsening pain in her right shoulder that is aggravated in the morning and at night. She finds no relief with Tylenol and Aleve as well as applying ice and heat. She has a history of left RTC repair on 05/22/24. 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 Tenderness along the proximal bicep tendon around the extensor muscle belly of the bicep. Forward flexion to 175, external rotation to 90, internal rotation to S1. Pain and weakness with RTC strength when compared to contralateral side. Negative Gaona and cross body abduction. NVI. Results Reviewed Results Reviewed: MR shoulder RT wo con IMPRESSION: 1. Postsurgical changes. 2 x 4 cm area of combination of full-thickness discontinuity and high-grade thinning of the supraspinatus tendon. Tendinosis and thinning of the residual fibers of the supraspinatus and infraspinatus tendons. 2. Moderate subscapularis tendinosis, deep surface fraying. 3. Biceps tendinosis and partial tearing. 4. Findings suspicious for a superior labral tear. Degeneration and probable fraying/tearing of the posterosuperior labrum. 5. Mild glenohumeral joint arthritis. Small effusion. Probable loose body in the subscapularis recess. 6. Moderate acromioclavicular arthritis. Assessment & Plan Assessment & Plan (1) Tendinitis of right rotator cuff: Code(s): M75.81 - Other shoulder lesions, right shoulder Category: Medical Plan We discussed options today which include repeat steroid injection which she states did not help at her last appointment and would like to consider alternative options. She did mention her previous RTC repair in right shoulder had full resolution of symptoms and her current limitations of the shoulder is similar to before that procedure. I explained any options that may be related to surgery would need to be further discussed with Dr Canales to determine if she is a candidate, she is interested in this plan and will be booked accordingly. X-rays of the left clavicle were ordere today at the hospital to further assess healing of clavicle s/p ORIF of right shoulder 05/22/24. If there are any concerns regarding the x-rays I will contact her sooner, otherwise she will follow-up as needed for her left clavicle. Orders: Orders XR clavicle LT Today M89.8X1 - Other specified disorders of bone, shoulder Patient Instructions: Scribed for Erin Alcazar PA-C, by seferino Olivera scribe, on 07/19/2024 at 1:00 PM EST.? I, Erin Alcazar PA-C, have personally reviewed and agree with the information entered by the scribe. Coding Level of Care Code Est Pt Level 3 (38925) Complex EM visit Add On G2211 Diagnoses Tendinitis of right rotator cuff M75.81
== END 2024-07-29 13:24 | disposition home or self-care (01) ==
PROVIDERS: PCP Pediatrics; Visit Provider Physician Assistant
DX: M75.81 Other shoulder lesions, right shoulder (principal)
CPT/HCPCS: 99213; G2211

== ENCOUNTER → 2024-07-29 13:07 | Outpatient (BNVA) | payer MEDICARE, MEDICAID, SELFPAY | PROVIDERS: PCP Pediatrics; Visit Provider Physician Assistant | DX: M75.81 Other shoulder lesions, right shoulder (principal); M89.8X1 Other specified disorders of bone, shoulder; M25.511 Pain in right shoulder | CPT/HCPCS: 99212 ==

== ENCOUNTER 2024-08-07 12:32 | Outpatient (AMB) | payer MEDICARE, MEDICAID, SELFPAY ==
--- NOTE | 2024-08-07 12:46 | MHC.OFFVIS ---
Intake Visit Reasons: OV-LT RTC 04/22/24 NE Intake Note: Yandy is a 49 year old right hand dominant female who presents today for a follow up s/p left clavicle ORIF 05/22/24 NE. Patient reports it feels like something is being pull sensation with movement. She mentions that her clavicle doesn't feel numb anymore. Allergies cephalexin [From KEFLEX] Allergy (Intermediate, Verified 08/07/24 12:51) HIVES Penicillins Allergy (Intermediate, Verified 08/07/24 12:51) HIVES poison alex extract Adverse Reaction (Verified 08/07/24 12:51) Rash TAPE,PAPER Allergy (Intermediate, Uncoded 07/29/24 13:14) REDNESS Medication List - Last Reconciled 08/07/24 by Erin Alcazar PA-C aripiprazole (Abilify) 30 mg PO DAILY dextroamphetamine-amphetamine 20 mg (Adderall) 20 mg PO DAILY dextroamphetamine-amphetamine 30 mg (Adderall) 30 mg PO DAILY omeprazole 40 mg PO BID oxycodone-acetaminophen 5-325 mg (Percocet) 1 tab PO Q6H PRN 10 days HPI HPI OV-LT RTC 04/22/24 NE: Details: 49-year-old female returns to the office today for a follow up on her right shoulder. She was last seen by me in early July, she continues to have significant pain in the right shoulder along with weakness. 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 Tenderness along the proximal bicep tendon around the extensor muscle belly of the bicep. Forward flexion to 175, external rotation to 90, internal rotation to S1. Pain and weakness with RTC strength when compared to contralateral side. Negative Gaona and cross body abduction. NVI. Results Reviewed Results Reviewed: MR shoulder RT wo con IMPRESSION: 1. Postsurgical changes. 2 x 4 cm area of combination of full-thickness discontinuity and high-grade thinning of the supraspinatus tendon. Tendinosis and thinning of the residual fibers of the supraspinatus and infraspinatus tendons. 2. Moderate subscapularis tendinosis, deep surface fraying. 3. Biceps tendinosis and partial tearing. 4. Findings suspicious for a superior labral tear. Degeneration and probable fraying/tearing of the posterosuperior labrum. 5. Mild glenohumeral joint arthritis. Small effusion. Probable loose body in the subscapularis recess. 6. Moderate acromioclavicular arthritis. Assessment & Plan Assessment & Plan (1) Rotator cuff tear, right: Code(s): M75.101 - Unspecified rotator cuff tear or rupture of right shoulder, not specified as traumatic Category: Medical Qualifiers: Rotator cuff tear extent: complete Rotator cuff tear trauma status: nontraumatic Qualified Code(s): M75.121 - Complete rotator cuff tear or rupture of right shoulder, not specified as traumatic Plan: I explained the procedure in detail along with the length of recovery and rehab course. I explained the risk, benefits and alternatives. Risk including, but not limited to infection, blood clots, bleeding, ongoing pain and stiffness. I explained the use of the sling post opL ie: 6 weeks. Discussed the importance of PT post op and performing pendulum exercises immediately after surgery. I answered all their questions and with their understanding they have consented to move forward with revision Rotator cuff repair right shoulder with Dr Canales. Coding Level of Care Code Est Pt Level 4 (32510) Complex EM visit Add On G2211 Diagnoses Nontraumatic complete tear of right rotator cuff M75.121 Rotator cuff tear extent: complete Rotator cuff tear trauma status: nontraumatic
== END 2024-08-07 13:12 | disposition home or self-care (01) ==
PROVIDERS: PCP Pediatrics; Visit Provider Physician Assistant
DX: M75.121 Complete rotator cuff tear or rupture of right shoulder, not specified as traumatic (principal)
CPT/HCPCS: 99214; G2211

== ENCOUNTER 2024-08-07 12:32 | Outpatient (REF) | payer MEDICARE, MEDICAID, SELFPAY ==
--- NOTE | ~2024-08-07 | XR_ITS ---
EXAMINATION: XR CLAVICLE, LEFT CLINICAL INFORMATION: M89.8X1 - Other specified disorders of bone, shoulder COMPARISON: 05/28/2024. TECHNIQUE: 2 of the left clavicle. FINDINGS: Redemonstration of superior stabilization plate with fixation screws across a previously seen mid diaphyseal clavicular fracture. There is anatomic alignment. Small versus osseous fragment. There is been further sclerosis of the fracture margins with some degree of bridging bony callus present indicating healing. Hardware appears intact and well seated without complication. No soft tissue abnormalities. Imaged left lung is clear. XR/XR clavicle LT IMPRESSION: 1. Evidence of mild interval healing of mid diaphyseal left clavicular fracture, which is fixated with plate and screws. Anatomic alignment. No complication seen. Electronically signed by: Shakeel Palacios MD 10/18/2024 10:34 PM BRIAN COTA
== END 2024-08-07 12:33 | disposition home or self-care (01) ==
LOC: HO.XRAY 12:32
PROVIDERS: Referring Provider Physician Assistant; Visit Provider Physician Assistant
DX: M75.121 Complete rotator cuff tear or rupture of right shoulder, not specified as traumatic (principal); M89.8X1 Other specified disorders of bone, shoulder
CPT/HCPCS: 73000; 99212

== ENCOUNTER → 2024-08-07 13:27 | Outpatient (BNV) | payer MEDICARE, MEDICAID, SELFPAY | PROVIDERS: Referring Provider Physician Assistant; Visit Provider Radiology Diagnostic Radiology | DX: S42.002A Fracture of unspecified part of left clavicle, initial encounter for closed fracture (principal) | CPT/HCPCS: 73000 ==

== ENCOUNTER 2024-09-17 11:01 | Outpatient (AMB) | payer MEDICARE, MEDICAID, SELFPAY ==
--- NOTE | 2024-09-17 11:04 | A.OFFVIS_ITS ---
Intake Visit Reasons: Preop RT RTC revision 09/23/24 NE Intake Note: Yandy is a 49 year old female who presents today for a pre op appointment for her right RTC revision 09/23/24 NE. Patient was fitted for her ultra sling in the office. Allergies cephalexin [From KEFLEX] Allergy (Intermediate, Verified 09/17/24 11:10) HIVES Penicillins Allergy (Intermediate, Verified 09/17/24 11:10) HIVES poison alex extract Adverse Reaction (Verified 09/17/24 11:10) Rash TAPE,PAPER Allergy (Intermediate, Uncoded 07/29/24 13:14) REDNESS HPI HPI Preop RT RTC revision 09/23/24 NE: Details: 49-year-old right hand dominant female who presents in the office today for her preoperative history and physical exam prior to a right rotator cuff revision to be performed on 10/03/[address] Canales. The patient reports her pain is limiting her daily activities. She has tried and failed all conservative treatments. Therefore, she has elected to proceed with a right rotator cuff revision. Patient has an allergy history, as follows: -Cephalexin (From KEFLEX); Hives. -Penicillins; Hives. -Poison alex extract; Rash -Paper tape; Erythema. Patient is currently taking, as follows: -Aripiprazole 30 mg PO daily. -Dextroamphetamine-amphetamine 20 mg PO daily. -Dextroamphetamine-amphetamine 30 mg PO daily. -Omeprazole 40 mg BID. -Oxycodone-acetaminophen 5-325 mg PO Q6H PRN. Patient has a medical history, as follows: -Internal hernia. -Perforated intestine, nontraumatic. -Rupture of the small intestine. -Stomach ulcer. Patient has a surgical history, as follows: -Hx of internal hernia repair. -Hx of right knee surgery. -Hx of right rotator cuff repair. -Hx of gastric bypass. Patient has a social history, as follows: -Smoking; 5 cigarettes per day. 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 Review of Systems Const All systems reviewed & are unremarkable except as noted in HPI and below Physical Exam Const General: cooperative, healthy appearing, comfortable, no acute distress, well developed, alert and awake Orientation/consciousness: patient oriented x3 HEENT Head: Yes normal to inspection, Yes normocephalic and Yes atraumatic Eyes General: appearance normal, both eyes and all related structures Neck Neck: Yes normal visual inspection and Yes no lymphadenopathy Resp Effort & Inspection: normal respiratory effort and able to speak in complete sentences Cardio Rate: regular rate Peripheral pulses: Peripheral pulses 2+ throughout GI Inspection: Yes normal to inspection Palpation (GI): Soft to palpation Skin General skin exam: no rashes or lesions noted Lesions: no lesions Rashes: no rashes Neuro General: patient oriented x3 Extrem Other: Right shoulder normal to inspection. Tenderness along the proximal bicep tendon around the extensor muscle belly of the bicep. Forward flexion to 175, external rotation to 90, internal rotation to S1. Pain and weakness with RTC strength when compared to contralateral side. Negative Gaona and cross body abduction. NVI. Psych Mental Status: mental status grossly normal Assessment & Plan Assessment & Plan (1) Rotator cuff tear, right: Code(s): M75.101 - Unspecified rotator cuff tear or rupture of right shoulder, not specified as traumatic Category: Medical Qualifiers: Rotator cuff tear extent: complete Rotator cuff tear trauma status: nontraumatic Qualified Code(s): M75.121 - Complete rotator cuff tear or rupture of right shoulder, not specified as traumatic Plan Ms. Roa is a 49-year-old right hand dominant female who presents in the office today for her preoperative history and physical exam prior to a right rotator cuff revision to be performed on 10/03/[address] Canales. The patient reports her pain is limiting her daily activities. She has tried and failed all conservative treatments. Therefore, she has elected to proceed with a right rotator cuff revision. Patient has an allergy history, as follows: -Cephalexin (From KEFLEX); Hives. -Penicillins; Hives. -Poison alex extract; Rash -Paper tape; Erythema. Patient is currently taking, as follows: -Aripiprazole 30 mg PO daily. -Dextroamphetamine-amphetamine 20 mg PO daily. -Dextroamphetamine-amphetamine 30 mg PO daily. -Omeprazole 40 mg BID. -Oxycodone-acetaminophen 5-325 mg PO Q6H PRN. Patient has a medical history, as follows: -Internal hernia. -Perforated intestine, nontraumatic. -Rupture of the small intestine. -Stomach ulcer. Patient has a surgical history, as follows: -Hx of internal hernia repair. -Hx of right knee surgery. -Hx of right rotator cuff repair. -Hx of gastric bypass. Patient has a social history, as follows: -Smoking; 5 cigarettes per day. I discussed in detail the procedure and what to expect pre and post operatively. We discussed the risks, benefits and alternatives to the surgery and the rehabil itation course. The risks include infection, bleeding, nerve injury, ongoing pain, swelling, and stiffness, perioperative risk of injury to bones and soft tissues, and blood clots. I have answered all questions and with their understanding they have consented to move forward with a right rotator cuff revision to be performed on 10/03/[address] Canales. Post operative medications were sent to the pharmacy, oxycodone-acetaminophen 5- 325 mg (Percocet) PO Q4-6H PRN, quantity 42 tabs for 7 days and morphine ER 15 mg (MS Contin) PO Q12H PRN, quantity 6 tabs for 3 days while in the office today. The patient was instructed that he/she should obtain the prescription prior to surgery but should not consume until after the procedure; as these should only be taken for postoperative pain management. Should the patient take these medications before surgery, a refill will not be sent to the pharmacy until their scheduled refill date. The patient was fitted in an ultrasling, off the shelf. She will bring the sling on the day of surgery. Follow-up will be at the post operative appointment on 09/23/2024, or sooner if needed. Patient Instructions: Scribed by Aminata Jarrett medical affairs manager, for Carissa Christina PA-C on 10/31/24 at 11:30 am EST. Coding Level of Care Code Global (20090) Diagnoses Nontraumatic complete tear of right rotator cuff M75.121 Rotator cuff tear extent: complete Rotator cuff tear trauma status: nontraumatic
== END 2024-09-17 12:18 | disposition home or self-care (01) ==
LOC: HO.HOS 11:01
PROVIDERS: Visit Provider Physician Assistant
DX: M75.121 Complete rotator cuff tear or rupture of right shoulder, not specified as traumatic (principal)
CPT/HCPCS: 99024

== ENCOUNTER → 2024-09-17 11:01 | Outpatient (BNVA) | payer MEDICARE, MEDICAID, SELFPAY | PROVIDERS: Visit Provider Physician Assistant | DX: M75.121 Complete rotator cuff tear or rupture of right shoulder, not specified as traumatic (principal) | CPT/HCPCS: 99212 ==

== ENCOUNTER 2024-09-23 06:31 | Day surgery (SDC) | payer MEDICARE, MEDICAID, SELFPAY ==
--- NOTE | 2024-09-22 09:29 | P.CONAN_ITS ---
Documented by User: Nena Johnston NP 09/22/24 09:31 HPI - Anesthesia Eval Consult details Narrative: 49yo F for Right REVISION Arthroscopic Rotator Cuff Repair s/p clavicle ORIF 05/2024 with GA-ETT 7 (pro view used d/t loose front tooth) PMFSH Active Problems Active Problems: All Active Problems Rotator cuff tear, right (Acute) Closed left clavicular fracture (Acute) Tendinitis of right rotator cuff (Acute) Golfers elbow (Acute) Tennis elbow (Acute) Past Medical History Medical History Hernia Perforated intestine, nontraumatic Internal hernia Rupture of small intestine ADHD Bipolar 1 disorder Stomach ulcer Family History Family history of problems with anesthesia: No Surgical History Surgical History History of surgery H/O: knee surgery S/P rotator cuff repair Hx of cholecystectomy H/O gastric bypass History of Problems with Anesthesia: No Social History Social History Patient Tobacco Use Status: Current everyday Tobacco user Tobacco use type: Cigarette Cigarettes Per Day: 4 Use of substances other than those prescribed or required for medical reasons: No Are you DNR?: No Advance Directives: No Advance Directives Information Provided: Yes Advance Directives on File: No Current occupational status: employed 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[employer], 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[employer], 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 Meds Allergies Allergy/AdvReac Type Severity Reaction Status Date / Time cephalexin [From KEFLEX] Allergy Intermediate HIVES Verified 09/17/24 11:10 Penicillins Allergy Intermediate HIVES Verified 09/17/24 11:10 poison alex extract AdvReac Rash Verified 09/17/24 11:10 TAPE,PAPER Allergy Intermediate REDNESS Uncoded 07/29/24 13:14 Home Medications ?Medication ?Instructions ?Recorded ?Confirmed ?Last Taken ?Type aripiprazole 30 mg tablet (Abilify) 30 mg PO DAILY 02/17/21 08/07/24 Unknown History dextroamphetamine-amphetamine 20 20 mg PO DAILY 02/17/21 08/07/24 09/23/24 History mg tablet (Adderall) dextroamphetamine-amphetamine 30 30 mg PO DAILY 02/17/21 08/07/24 09/23/24 History mg tablet (Adderall) omeprazole 40 mg capsule,delayed 40 mg PO BID 02/17/21 08/07/24 09/23/24 History release Assessment and Plan Assessment Anesthesia Assessment: Chart Reviewed Final Anesthetic Review Family History of Problems with Anesthesia: No History of Problems with Anesthesia: No Documented by User: Emily Biggs MD 09/23/24 07:58 PMFSH Past Medical History Medical History Hernia Perforated intestine, nontraumatic Internal hernia Rupture of small intestine ADHD Bipolar 1 disorder Stomach ulcer Surgical History Surgical History History of surgery H/O: knee surgery S/P rotator cuff repair Hx of cholecystectomy H/O gastric bypass Social History Social History Patient Tobacco Use Status: Current everyday Tobacco user Tobacco use type: Cigarette Cigarettes Per Day: 4 Use of substances other than those prescribed or required for medical reasons: No Are you DNR?: No Advance Directives: No Advance Directives Information Provided: Yes Advance Directives on File: No Current occupational status: employed 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[employer], 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[employer], 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 Meds Allergies Allergy/AdvReac Type Severity Reaction Status Date / Time cephalexin [From KEFLEX] Allergy Intermediate HIVES Verified 09/17/24 11:10 Penicillins Allergy Intermediate HIVES Verified 09/17/24 11:10 poison alex extract AdvReac Rash Verified 09/17/24 11:10 TAPE,PAPER Allergy Intermediate REDNESS Uncoded 07/29/24 13:14 Home Medications ?Medication ?Instructions ?Recorded ?Confirmed ?Last Taken ?Type aripiprazole 30 mg tablet (Abilify) 30 mg PO DAILY 02/17/21 08/07/24 Unknown History dextroamphetamine-amphetamine 20 20 mg PO DAILY 02/17/21 08/07/24 09/23/24 History mg tablet (Adderall) dextroamphetamine-amphetamine 30 30 mg PO DAILY 02/17/21 08/07/24 09/23/24 History mg tablet (Adderall) omeprazole 40 mg capsule,delayed 40 mg PO BID 02/17/21 08/07/24 09/23/24 History release Exam Airway Mallampati Class: II TM Dist: >3cm Neck ROM: Full Heart: rrr Lungs: cta Assessment and Plan Assessment Anesthesia Assessment: Anesthesia Plan Discussed Final Anesthetic Review NPO: Yes ASA Class: II Final Preanesthetic Review: No Changes in Pt Med Stat, Meds/Allgs Chart Reviewed, Consent Obtained/Reviewed and Anes Risks/Benef Reviewed Patient Risk: Low Procedure Risk: Low Anesthetic Plan Anesthetic Plan: GA and Regional Block Disposition: Standard PACU
[2024-09-23 06:56] VITALS: BMI 29.9
[2024-09-23 07:05] VITALS: BP 108/41; PULSE 99; RESP 16; TEMP 37.1; O2SAT 99
[2024-09-23 07:11] LABS: UPreg QC Valid YES; Urine Pregnancy NEGATIVE (NEGATIVE)
--- NOTE | 2024-09-23 07:22 | MHC.SHP ---
Pre-Procedural Eval Section A - 24 Hr Update-Section A only Date of Service: 09/23/24 The patient is an INPATIENT: No Changes since office visit: No Cold of Flu in the past 2 weeks, No New Medical Problems, No Changes in Medication and No Patient answered all questions The patient has been examined within 24 hours of the surgical procedure. The History & Physical has been completed within 30 days and I have reviewed it.: Yes Section B - Complete if H&P > 30 days Chief Complaint: Complete rotator cuff tear or rupture of right Allergies: Allergies Allergy/AdvReac Type Severity Reaction Status Date / Time cephalexin [From KEFLEX] Allergy Intermediate HIVES Verified 09/17/24 11:10 Penicillins Allergy Intermediate HIVES Verified 09/17/24 11:10 poison alex extract AdvReac Rash Verified 09/17/24 11:10 TAPE,PAPER Allergy Intermediate REDNESS Uncoded 07/29/24 13:14 Plan I have reviewed the history and physical and performed a pertinent physical examination on my patient. No changes have occurred unless specified. Time Spent With Patient Time: Total time managing care of this patient today ____ minutes.
[2024-09-23] MEDS: Lactated Ringers 1,000 ML 100 ML IVCONT (08:02)
--- NOTE | 2024-09-23 08:02 | PC.NURSE ---
patient had an ultrasound guided iv insertion from agricultural crop farm manager
[2024-09-23 10:25] VITALS: BP 141/91; PULSE 81; RESP 16; TEMP 36.8; O2SAT 100
[2024-09-23 10:30] VITALS: BP 150/84; PULSE 76; RESP 16; O2SAT 100
[2024-09-23 10:35] VITALS: BP 140/81; PULSE 75; RESP 16; O2SAT 99
[2024-09-23 10:40] VITALS: BP 136/84; PULSE 85; RESP 18; O2SAT 99
[2024-09-23 10:55] VITALS: BP 126/82; PULSE 75; RESP 18; TEMP 37; O2SAT 97
--- NOTE | 2024-09-23 12:44 | P.BOP_ITS ---
Brief Operative Note Date of Service: 09/23/24 Pre-op diagnosis: Right RTC tear Post-op diagnosis: same Procedure: Right Subscapularis repair Right RTC revision repair biceps tenotomy with circumferential labral debridement DCE Implants: Blake and Nephew 5.0 Helacoil knotless x 1 Blake and Nephew 5.5 Helacoil knotless x 2 Blake and Nephew 4.75 double loaded x 2 Regeneten large bioinductive collagen implant Surgeon: Sarkis Canales MD Anesthesia: GETA and regional Was an Assembler Finger Buffs used for this Procedure?: Yes Assembler Finger Buffs: Carissa Christina Estimated blood loss (mL): 25 IV fluids (mL): 1,000 Pathology: none sent Condition: stable Disposition: PACU
--- NOTE | 2024-09-23 12:50 | P.OP_ITS ---
Operative Note Operative Note Date of Service: 09/23/24 Narrative: Date of Service: 09/23/24 Pre-op diagnosis: Right RTC tear Post-op diagnosis: same Procedure: Right Subscapularis repair Right RTC revision repair biceps tenotomy with circumferential labral debridement DCE Implants: Blake and Nephew 5.0 Helacoil knotless x 1 Blake and Nephew 5.5 Helacoil knotless x 2 Blake and Nephew 4.75 double loaded x 2 Regeneten large bioinductive collagen implant Surgeon: Sarkis Canales MD Anesthesia: GETA and regional Was an Application Defense Manager used for this Procedure?: Yes Application Defense Manager: Carissa Christina Estimated blood loss (mL): 25 IV fluids (mL): 1,000 Pathology: none sent Condition: stable Disposition: PACU Procedure in detail: Patient was brought to the operating room and placed the the beach chair position. All bony prominences were well padded and the limb was prepped and draped in standard sterile fashion. A time out was called to identify proper site, proper procedure and proper surgeon. IV antibiotics per weight were administered. I began by making a posterolateral stab incision with a 15 blade. A blunt trochar was placed into the glenohumeral joint and I insufflated the joint with saline and a 30 degree arthroscope was placed. I established an outside- in anterior portal just distal to the biceps tendon. I then began my inspection of the glenohumeral joint. There was a large tear of the biceps at the proximal groove. There were minimal cartilage changes at the inferior glenoid without humeral head changes. There was a full thickness undersurface RTC tear with old suture anchors present. There was ahigh grade partial thickness tear of the subscapularis that was mobile. I debrided the loose cartilage of the labrum and performed a biceps tenotomy. I then used a Scorpion to place two looped suture through the lateral edge of the subscapularis. I used a spherical reza to debride the insertion site down to bleeding bone and then placed a 5.0 kntoless Helacoil and broght the subscapularis to its insertion site with the arm in internal rotation. I was satisfied with the repair. I then removed the trochar and entered the subacromial space. A direct lateral portal was then established and I performed a bursectomy. The cuff was then examined. There was a full thickness tear of the supraaspinatus with moderate retraction. I removed 3 sutures with no visisble suture anchor and without bone loss. The tear was partially mobile. I debrided medially and anteriorly and then palced two 4,75 medial row Blake and Nephew anchors and brought the 8 limbs through the medial curr. I then debrided the bare area down to bleeding bone and I placed two two lateral 5.0 anchors and re-approximated the suff to the bare area. The tissue quality was not perfect and , given that this was a revision, I placed a large Regeneten bioinductive collagen implant over the repair. The was tacked down medially and bone devin were used laterally. I then performed a 5mm DCE via the anterior portal with an oval reza. Once I was satisfied with the repair final images were captured and I removed all instrumentation. Portals were closed with nylon. Patient was placed in an abduction sling, extubated and brought to the recovery room in stable condition. There were no known comp lications.
== END 2024-09-23 11:58 | disposition home or self-care (01) ==
LOC: HO.SSS 06:32
PROVIDERS: Nurse Practitioner; PCP Pediatrics; Visit Provider Orthopaedic Surgery
PROC: (CPT 29827; principal; 2024-09-23 08:30)
DX: M75.121 Complete rotator cuff tear or rupture of right shoulder, not specified as traumatic (principal); M25.511 Pain in right shoulder; F31.9 Bipolar disorder, unspecified; F90.9 Attention-deficit hyperactivity disorder, unspecified type; Z79.899 Other long term (current) drug therapy; Z88.0 Allergy status to penicillin; Z88.1 Allergy status to other antibiotic agents; L23.1 Allergic contact dermatitis due to adhesives; Z98.84 Bariatric surgery status; Z98.890 Other specified postprocedural states; Z90.49 Acquired absence of other specified parts of digestive tract; F17.210 Nicotine dependence, cigarettes, uncomplicated
CPT/HCPCS: 29827; 29824; 29823; 81025; C1713; C1763; J0131; J0171; J0665; J0736; J1100; J2003; J2250; J2405; J2704; J3010

== ENCOUNTER → 2024-09-23 06:31 | Outpatient (BNV) | payer MEDICARE, MEDICAID, SELFPAY | PROVIDERS: PCP Pediatrics; Visit Provider Orthopaedic Surgery | DX: M75.121 Complete rotator cuff tear or rupture of right shoulder, not specified as traumatic (principal) | CPT/HCPCS: 29827 ==

== ENCOUNTER 2024-10-01 14:00 | Outpatient (AMB) | payer MEDICARE, MEDICAID, SELFPAY ==
--- NOTE | 2024-10-01 14:05 | A.OFFVIS_ITS ---
Intake Visit Reasons: PO RT RTC revision 09/23/24 NE Intake Note: Yandy is a 49 year old right hand dominant female who presents today for a post op appointment s/p right RTC revision 09/23/24 NE. Patient reports her pain is worse at night. She states that she is not able to get sleep at night with the pain. Allergies cephalexin [From KEFLEX] Allergy (Intermediate, Verified 10/01/24 14:11) HIVES Penicillins Allergy (Intermediate, Verified 10/01/24 14:11) HIVES poison alex extract Adverse Reaction (Verified 10/01/24 14:11) Rash TAPE,PAPER Allergy (Intermediate, Uncoded 07/29/24 13:14) REDNESS HPI HPI PO RT RTC revision 09/23/24 NE: Details: 49-year-old right hand dominant female who presents in the office today 8 days status post right subscapularis repair, right RTC revision repair, biceps tenotomy with circumferential labral debridement, and DCE which was performed on 09/23/[address] Canales. While in the office today, the patient reports worsening pain which is prevalent at night. She mentions difficulty sleeping due to pain. Patient is wearing the sling appropriately. 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 Sutures are intact. No surrounding erythema or drainage. No signs of infection. Forward flexion and abduction to 45 degrees. External rotation to neutral. NVI. Assessment & Plan Assessment & Plan (1) Rotator cuff tear, right: Code(s): M75.101 - Unspecified rotator cuff tear or rupture of right shoulder, not specified as traumatic Category: Medical Qualifiers: Rotator cuff tear extent: complete Rotator cuff tear trauma status: nontraumatic Qualified Code(s): M75.121 - Complete rotator cuff tear or rupture of right shoulder, not specified as traumatic Plan Ms. Roa is a 49-year-old right hand dominant female who presents in the office today 8 days status post right Subscapularis repair, right RTC revision repair, biceps tenotomy with circumferential labral debridement, and DCE which was performed on 09/23/[address] Canales. While in the office today, the patient reports worsening pain which is prevalent at night. She mentions difficulty sleeping due to pain. Patient is wearing the sling appropriately. Sutures were removed and steri-strips were applied. The patient was referred to physical therapy today. She will remain in the sling for a total of six weeks. Follow-up will be with Dr. Canales in 4 weeks, or sooner if needed. Orders: Orders PT Evaluation and Treatment Today M75.121 - Complete rotator cuff tear or rupture of right shoulder, not specified as traumatic Patient Instructions: Scribed by Aminata Jarrett medical insurance biller, for Carissa Christina PA-C on 10/01/24 at 2:36 pm EST. Coding Level of Care Code Global (24565) Diagnoses Nontraumatic complete tear of right rotator cuff M75.121 Rotator cuff tear extent: complete Rotator cuff tear trauma status: nontraumatic
== END 2024-10-01 14:48 | disposition home or self-care (01) ==
PROVIDERS: Visit Provider Physician Assistant
DX: M75.121 Complete rotator cuff tear or rupture of right shoulder, not specified as traumatic (principal)
CPT/HCPCS: 99024

== ENCOUNTER → 2024-10-01 14:00 | Outpatient (BNVA) | payer MEDICARE, MEDICAID, SELFPAY | PROVIDERS: Visit Provider Physician Assistant | DX: M75.101 Unspecified rotator cuff tear or rupture of right shoulder, not specified as traumatic (principal) | CPT/HCPCS: 99212 ==

== ENCOUNTER 2024-10-29 13:18 | Outpatient (AMB) | payer MEDICARE, MEDICAID, SELFPAY ==
--- NOTE | 2024-10-29 13:27 | A.OFFVIS_ITS ---
Intake Visit Reasons: PO RT RTC revision 09/23/24 NE Intake Note: Yandy is a 49 year old right hand dominant female who presents today for a post op appointment s/p right RTC revision 09/23/24. Patient reports that she continues to have pain in the right shoulder, this pain is described as throbbing. Increased pain at night with cramping in the shoulder and elbow. Denies numbness and tingling. She is taking Tylenol and Aleve for her pain but she is getting heartburn while talking this. Allergies cephalexin [From KEFLEX] Allergy (Intermediate, Verified 10/01/24 14:11) HIVES Penicillins Allergy (Intermediate, Verified 10/01/24 14:11) HIVES poison alex extract Adverse Reaction (Verified 10/01/24 14:11) Rash TAPE,PAPER Allergy (Intermediate, Uncoded 07/29/24 13:14) REDNESS HPI HPI PO RT RTC revision 09/23/24 NE: Details: Yandy is a 49 year old right hand dominant female who presents today for a post op appointment s/p right RTC revision 09/23/24. Patient reports that she continues to have pain in the right shoulder, this pain is described as throbbing. Increased pain at night with cramping in the shoulder and elbow. Denies numbness and tingling. She is taking Tylenol and Aleve for her pain but she is getting heartburn while talking this. 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[employer], 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 Physical Exam Extrem Other: Incision clean dry and intact External rotation to 20 degrees Passive abduction to 90 Assessment & Plan Assessment & Plan (1) Rotator cuff tear, right: Code(s): M75.101 - Unspecified rotator cuff tear or rupture of right shoulder, not specified as traumatic Category: Medical Qualifiers: Rotator cuff tear extent: complete Rotator cuff tear trauma status: nontraumatic Qualified Code(s): M75.121 - Complete rotator cuff tear or rupture of right shoulder, not specified as traumatic Plan: Large rotator cuff repair that was a revision from a surgery performed many years ago at an outside institution. Severe damage with retraction. Repair went well but large rotator cuff repair protocol employed. Has been doing well. May continue physical therapy as per large repair protocol. Follow up 6 weeks. Coding Level of Care Code Global (85972) Diagnoses Nontraumatic complete tear of right rotator cuff M75.121 Rotator cuff tear extent: complete Rotator cuff tear trauma status: nontraumatic
== END 2024-10-29 13:41 | disposition home or self-care (01) ==
PROVIDERS: PCP Pediatrics; Visit Provider Orthopaedic Surgery
DX: M75.121 Complete rotator cuff tear or rupture of right shoulder, not specified as traumatic (principal)
CPT/HCPCS: 99024

== ENCOUNTER → 2024-10-29 13:18 | Outpatient (BNVA) | payer MEDICARE, MEDICAID, SELFPAY | PROVIDERS: PCP Pediatrics; Visit Provider Orthopaedic Surgery | DX: Z47.89 Encounter for other orthopedic aftercare (principal); M75.121 Complete rotator cuff tear or rupture of right shoulder, not specified as traumatic; Z98.890 Other specified postprocedural states | CPT/HCPCS: 99212 ==

== ENCOUNTER 2024-12-10 13:18 | Outpatient (AMB) | payer MEDICARE, MEDICAID, SELFPAY ==
--- NOTE | 2024-12-10 13:23 | MHC.OFFVIS ---
Intake Visit Reasons: PO RT RTC revision 09/23/24 NE-6 WK f/u Intake Note: Yandy is a 49 year old right hand dominant female who presents today for a post op appointment two months s/p right RTC revision 09/23/24. Patient reports that she is doing so so , she has continued painful ROM. She also reports a popping or clicking , sometimes it feels like it locks up but once it pops it feels better. She is taking Aleve and Tylenol for her pain which is only helping mildly. She continues to take Oxycodone 5mg at night. Allergies cephalexin [From KEFLEX] Allergy (Intermediate, Verified 12/10/24 13:25) HIVES Penicillins Allergy (Intermediate, Verified 12/10/24 13:25) HIVES poison alex extract Adverse Reaction (Verified 12/10/24 13:25) Rash TAPE,PAPER Allergy (Intermediate, Uncoded 12/10/24 13:25) REDNESS HPI HPI PO RT RTC revision 09/23/24 NE-6 WK f/u: Details: Yandy is a 49 year old right hand dominant female who presents today for a post op appointment two months s/p right RTC revision 09/23/24. Patient reports that she is doing so so , she has continued painful ROM. She also reports a popping or clicking , sometimes it feels like it locks up but once it pops it feels better. She is taking Aleve and Tylenol for her pain which is only helping mildly. She continues to take Oxycodone 5mg at night. 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 Continue home exercise program. Follow up 3 months as needed. No heavy Coding Level of Care Code Global (19173) Diagnoses Status post right rotator cuff repair Z98.890
== END 2024-12-10 13:43 | disposition home or self-care (01) ==
PROVIDERS: PCP Pediatrics; Visit Provider Orthopaedic Surgery
DX: Z98.890 Other specified postprocedural states (principal)
CPT/HCPCS: 99024

== ENCOUNTER → 2024-12-10 13:18 | Outpatient (BNVA) | payer MEDICARE, MEDICAID, SELFPAY | PROVIDERS: PCP Pediatrics; Visit Provider Orthopaedic Surgery | DX: Z47.89 Encounter for other orthopedic aftercare (principal); Z98.890 Other specified postprocedural states | CPT/HCPCS: 99212 ==

== ENCOUNTER 2025-07-14 14:43 | Outpatient (AMB) | payer MEDICARE, MEDICAID, SELFPAY ==
--- NOTE | 2025-07-14 14:56 | MHC.OFFVIS ---
Intake Visit Reasons: OV-B/L elbow injection-last inj 11/28/23 f/u Intake Note: Yandy is a 50 year old right hand dominant female who presents today for a follow up of bilateral elbow. Patient was last seen in office for her elbow on 11/28/23 and bilteral injections were given. Patient reports injection helped until recently. She is requesting to repeat injections today. Allergies cephalexin (From KEFLEX) Allergy (Intermediate, Verified 07/14/25 14:58) HIVES Penicillins Allergy (Intermediate, Verified 07/14/25 14:58) HIVES poison alex extract Adverse Reaction (Verified 07/14/25 14:58) Rash TAPE,PAPER Allergy (Intermediate, Uncoded 07/14/25 14:58) REDNESS Medication List - Last Reconciled 07/14/25 by Erin Alcazar PA-C aripiprazole (Abilify) 30 mg PO DAILY dextroamphetamine-amphetamine 20 mg (Adderall) 20 mg PO DAILY dextroamphetamine-amphetamine 30 mg (Adderall) 30 mg PO DAILY omeprazole 40 mg PO BID HPI HPI OV-B/L elbow injection-last inj 11/28/23 f/u: Details: 50 yo female returns to the office today f/u bilat elbow pain. She had an injection in both elbows in 11/2023 and states they were helpful for approx 1 year. She has pain with lifting objects. No new injury. 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 No erythema or swelling. ROM full without pain. Tenderness over the lateral epicondyle and pain with resisted wrist extension. NVI. Office Procedures AMB Joint Injection/Aspiration Joint Injection/Aspiration Primary Site: right tennis elbow Secondary Site: left tennis elbow Prep: site was prepped using aseptic technique, ethochloride spray was applied and injection warnings given Injected: 40 mg of, with 1 mL of, 1% plain lidocaine, 0.25% bupivacaine and decadron Procedure: The patient tolerated the procedure well and there was some relief with the local anesthesia Coding 35950 - Glenohumeral/Tronchanteric Bursa/Intraarticular Procedure code (CPT) selection complete Assessment & Plan Assessment & Plan (1) Tennis elbow: Code(s): M77.10 - Lateral epicondylitis, unspecified elbow Category: Medical Qualifiers: Laterality: bilateral Qualified Code(s): M77.11 - Lateral epicondylitis, right elbow; M77.12 - Lateral epicondylitis, left elbow Plan We discussed options today which include steroid injection. They did consent to move forward with the bilateral elbow injection, which was tolerated well. I recommended rest, ice and elevation and OTC anti-inflammatories PRN for discomfort. If symptoms persist or worsens over the next 6-8 weeks, patient will contact the office. She was also given a handout of home exercises for her elbow and I did explain that modification of activities is important in reducing flareups. Coding Level of Care Code Est Pt Level 3 (64277) Complex EM visit Add On G2211 Diagnoses Lateral epicondylitis of both elbows M77.11; M77.12 Laterality: bilateral CPT Codes Coding - Joint 7: 33516 - Glenohumeral/Tronchanteric Bursa/Intraarticular ([id number])
--- OUTSIDE RECORDS SUMMARY | 2025-07-14 16:06 | XMS_ITS | Encounter Summary ---
Author Organization [facility] [facility] Address [address] [place] [address] [address], [place] [address] Care Team Providers Care Greaser And Oiler Name Role Phone Unavailable Primary Care Provider Unavailabl e Encounter Details Date Type Department Care Team (Latest Contact Info) Description 05/04/2021 Abstract [facility]VERSION[facility] Dental, Provider, DDS Social History Tobacco Use Types Packs/Day Years Used Date Smoking Tobacco: Never Assessed Comments Unknown Sex and Gender Information Value Date Recorded Sex Assigned at Female 09/17/2022 10:20 AM EDT Legal Sex Female 10:20 AM EDT Gender Identity Female 09/17/2022 10:20 AM EDT Sexual Orientation Lesbian or Pappas 09/17/2022 10 :20 AM EDT documented as of this encounter Plan of Treatment Not on file documented as of this encounter Visit Diagnoses Not on filedocumented in this encounter
--- OUTSIDE RECORDS SUMMARY | 2025-07-14 16:06 | XMS_ITS | Encounter Summary ---
Author Organization [facility] [facility] Address [address] [place] [address] [address], [place] [address] Care Team Providers Care Jewelry Consultant Name Role Phone Unavailable Primary Care Provider Unavailabl e Encounter Details Date Type Department Care Team (Latest Contact Info) Description 03/27/2019 Abstract [facility] CONVERSIONS Dental, Provider, DDS Social History [...]
--- OUTSIDE RECORDS SUMMARY | 2025-07-14 16:06 | XMS_ITS | Encounter Summary ---
Author Organization [employer] Address [address] [place] [address] [address] [place] [address] Care Team Providers Care Beam House Inspector Name Role Phone Unavailable Primary Care Provider Unavailabl e Reason for Visit * Reason Onset Date Comments appt for rct 08/12/2023 Encounter Details Date Type Department Care Team ([facility] st Contact Info) Description 08/12/2023 Telephone [facility] [address] [place] [address] Remy Trejo, DDS [address] [place] [address] appt for rct Social History Tobacco Use Types Packs/Day Years Used Date Smoking Tobacco: Every Day Cigarettes Smokeless Tobacco: Never Alcohol Use Standard Drinks/Week Comments Never 0 (1 standard drink = 0.6 oz pur e alcohol) Comments Unknown Sex and Gender Information Value Date Recorded Sex Assigned at Female 09/17/2022 10:20 AM EDT Legal Sex Female 10:20 AM EDT Gender Identity Female 09/17/2022 10:20 AM EDT Sexual Orientation Lesbian or Pappas 09/17/2022 10 :20 AM EDT documented as of this encounter Miscellaneous Notes * Telephone Encounter - Nuris Gaona - 08/12/2023 8:25 AM EDT Patient called in to check in on status of appt for RCT. She states she is not in pain but her teeth are breaking. I did inform patient that she is on the waiting list and provider comes in 1x per week. I did inform patient I would relay call to office in event that something has become available. Assured patient she is on the waiting list DR documented in this encounter Plan of Treatment Not on file documented as of this encounter Visit Diagnoses Not on filedocumented in this encounter
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
--- OUTSIDE RECORDS SUMMARY | 2025-07-14 16:06 | XMS_ITS | Encounter Summary ---
Author Organization [facility] Address [address] [place] [address] [address] [address] Care Team Providers Care Client Relationship Executive Name Role Phone Unavailable Primary Care Provider Unavailabl e Encounter Details Date Type Department Care Team (Latest Contact Info) Description 06/21/2022 Abstract [facility] CONVERSIONS Dental, Provider, DDS Social History [...]
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
== END 2025-07-14 16:00 | disposition home or self-care (01) ==
LOC: HO.HOS 14:44
PROVIDERS: PCP Pediatrics; Visit Provider Physician Assistant
DX: M77.11 Lateral epicondylitis, right elbow (principal); M77.12 Lateral epicondylitis, left elbow
CPT/HCPCS: 20550; 99213

== ENCOUNTER → 2025-07-14 14:43 | Outpatient (BNVA) | payer MEDICARE, MEDICAID, SELFPAY | PROVIDERS: PCP Pediatrics; Visit Provider Physician Assistant | DX: M77.12 Lateral epicondylitis, left elbow (principal); M77.11 Lateral epicondylitis, right elbow | CPT/HCPCS: 20550; 99212; J1100; J2003 ==

== ENCOUNTER 2025-10-25 13:34 | Outpatient (AMB) | payer MEDICARE, MEDICAID, SELFPAY ==
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
--- OUTSIDE RECORDS SUMMARY | 2025-10-20 11:15 | XMS_ITS | Encounter Summary ---
Author Organization [facility] [place] [address] Care Team Providers Care Box Blank Machine Operator Helper Name Role Phone Rao Pan MD Primary Care Provider [phone] Encounter Details Date Type Department Care Team (Late st Contact Info) Description 10/20/2025 11:15 AM EST Lab Draw Station [address] [address] Bilateral leg cramps Social History Tobacco Use Types Packs/Day Years [...] AM EST documented as of this encounter Plan of Treatment Upcoming Encounters Date Type Department Care Team (Late st Contact Info) Description 10/26/2025 9:00 AM EST Office Visit Adult [facility] [address], [place] [phone] Nehal Carlos PA [address] [place], [place] documented as of this encounter Procedures Procedure Name Priority Date/Time Associated Diagnosis Comments CBC WITH AUTO DIFFERENTIAL Routine 10/20/2025 11:21 AM EST Bilateral leg cramps IRON AND TIBC Routine 10/20/2025 11:21 AM EST Bilateral leg cramps CBC AND DIFFERENTIAL Routine 10/20/2025 11:21 AM EST Bilateral leg cramps MAGNESIUM Routine 10/20/2025 11:21 AM EST Bilateral leg cramps FOLATE Routine 10/20/2025 11:21 AM EST Bilateral leg cramps FERRITIN Routine 10/20/2025 11:21 AM EST Bilateral leg cramps VITAMIN B12 Routine 10/20/2025 11:21 AM EST Bilateral leg cramps COMPREHENSIVE METABOLIC PANEL Routine 10/20/2025 11:21 AM EST Bilateral leg cramps documented in this encounter Results * (ABNORMAL) CBC auto differential (10/20/2025 11:21 AM EST) [facility] Signature WBC 4.2(L) 4.8 - 10.8 K/mcL LAB HEMETOLOGY METHOD 10/20/2025 3:19 PM [facility] RBC 4.40 3.80 - 4.80 M/mcL LAB HEMETOLOGY METHOD 10/20/2025 3:19 PM [facility] Hemoglobin 13.2 11.5 - 16.0 g/dL LAB HEMETOLOGY METHOD 10/20/2025 3:19 PM [facility] Hematocrit 38.7 35.0 - 47.0 % LAB HEMETOLOGY METHOD 10/20/2025 3:19 PM [facility] MCV 88.6 79.0 - 98.0 FL LAB HEMETOLOGY METHOD 10/20/2025 3:19 PM [facility] MCH 30.2 27.0 - 32.0 pcg LAB HEMETOLOGY METHOD 10/20/2025 3:19 PM [facility] MCHC 34.1 32.0 - 37.0 g/dL LAB HEMETOLOGY METHOD 10/20/2025 3:19 PM [facility] RDW 12.8 11.0 - 15.0 % LAB HEMETOLOGY METHOD 10/20/2025 3:19 PM [facility] Platelets 199 130 - 400 K/mcL LAB HEMETOLOGY METHOD 10/20/2025 3:19 PM [facility] MPV 9.6 7.0 - 11.0 FL LAB HEMETOLOGY METHOD 10/20/2025 3:19 PM [facility] NRBC 0.0 <1.0 % LAB HEMETOLOGY METHOD 10/20/2025 3:19 PM [facility] NRBC Absolute 0.00 <0.10 K/mcL LAB HEMETOLOGY METHOD 10/20/2025 3:19 PM [facility] Neutrophils Relative 50.0 % LAB HEMETOLOGY METHOD 10/20/2025 3:19 PM [facility] Lymphocytes Relative 38.8 % LAB HEMETOLOGY METHOD 10/20/2025 3:19 PM EST [facility] Monocytes Relative 7.4 % LAB HEMETOLOGY METHOD 10/20/2025 3:19 PM [facility] Eosinophils Relative 3.1 % LAB HEMETOLOGY METHOD 10/20/2025 3:19 PM [facility] Basophils Relative 0.5 % LAB HEMETOLOGY METHOD 10/20/2025 3:19 PM [facility] Immature Granulocytes Relative 0.2 % LAB HEMETOLOGY METHOD 10/20/2025 3:19 PM [facility] Neutrophils Absolute 2.10 1.50 - 7.00 K/mcL LAB HEMETOLOGY METHOD 10/20/2025 3:19 PM [facility] Lymphocytes Absolute 1.63 1.00 - 5.00 K/mcL LAB HEMETOLOGY METHOD 10/20/2025 3:19 PM [facility] Monocytes Absolute 0.31 0.20 - 1.00 K/mcL LAB HEMETOLOGY METHOD 10/20/2025 3:19 PM [facility] Eosinophils Absolute 0.13 0.00 - 0.50 K/mcL LAB HEMETOLOGY METHOD 10/20/2025 3:19 PM [facility] Basophils Absolute 0.02 0.00 - 0.20 K/mcL LAB HEMETOLOGY METHOD 10/20/2025 3:19 PM [facility] Immature Granulocytes Absolute 0.01 0.00 - 0.03 K/mcL LAB HEMETOLOGY METHOD 10/20/2025 3:19 PM [facility] Blood Venous blood specimen / Unknown Venipuncture / Unknown 10/20/2025 11:21 AM EST 10/20/2025 11:21 AM EST Nehal SANTO LAB BLOOD ORDERABLES Fin al Result [facility] [address] [place] [address], [place] [phone] * Ferritin (10/20/2025 11:21 AM EST) [facility] Ferritin 18 7 - 271 ng/mL 10/20/2025 5:04 PM EST [facility] Blood Venous blood specimen / Unknown Venipuncture / Unknown 10/20/2025 11:21 AM EST 10/20/2025 11:21 AM EST Nehal SANTO LAB BLOOD ORDERABLES Fin al Result Performing Organization Address [facility]/ZIP Co de Phone Number [facility] [address] [place] [address], [place] [phone] * Folate (10/20/2025 11:21 AM EST) [facility] Folate 7.1 >=5.4 ng/ml 10/20/2025 5:06 PM EST [facility] Blood Venous blood specimen / Unknown Venipuncture / Unknown 10/20/2025 11:21 AM EST 10/20/2025 11:21 AM EST Narrative [facility] - 10/20/2025 5:06 PM EST Over the counter supplements containing high doses of biotin may interfere with this assay. If interference is suspected, patients shoud be retested after refraining from biotin supplements for 72 hours. Nehal SANTO LAB BLOOD ORDERABLES Fin al Result [facility] [address] [place] [address], [place] [phone] * (ABNORMAL) Iron and TIBC (10/20/2025 11:21 AM EST) [facility] Iron 53 40 - 150 mcg/dL 10/20/2025 4:59 PM EST [facility] TIBC 368 250 - 450 mcg/dL 10/20/2025 4:59 PM EST [facility] Iron Saturation 14(L) 15 - 50 % 4:59 PM [facility] Blood Venous blood specimen / Unknown Venipuncture / Unknown 10/20/2025 11:21 AM EST 10/20/2025 11:21 AM EST Nehal SANTO LAB BLOOD ORDERABLES Fin al Result Performing Organization Address City/[facility]/ZIP Co de Phone Number [facility] [address] [place] [address], [place] [phone] * Vitamin B12 (10/20/2025 11:21 AM EST) Vitamin B-12 376 211 - 911 pcg/mL 10/20/2025 5:07 PM [facility] Blood Venous blood specimen / Unknown Venipuncture / Unknown 10/20/2025 11:21 AM EST 10/20/2025 11:21 AM EST Nehal SANTO LAB BLOOD ORDERABLES Fin al Result Performing Organization Address City/[facility]/ZIP Co de Phone Number [facility] [address] [place] [address], [place] [phone] * (ABNORMAL) Comprehensive metabolic panel (10/20/2025 11:21 AM EST) Sodium 140 133 - 145 mmol/L 10/20/2025 4:59 PM EST [facility] Potassium 4.1 3.5 - 5.5 mmol/L 10/20/2025 4:59 PM EST [facility] Chloride 106 96 - 110 mmol/L 10/20/2025 4:59 PM EST [facility] CO2 26 21 - 32 mmol/L 10/20/2025 4:59 PM [facility] Anion Gap 8 3 - 11 10/20/2025 4:59 PM [facility] Glucose 136(H) 70 - 100 mg/dL 10/20/2025 4:59 PM [facility] BUN 16 5 - 25 mg/dL 10/20/2025 4:59 PM [facility] Creatinine 0.93 0.50 - 1.10 mg/dL 10/20/2025 4:59 PM [facility] eGFR 76 >=60 mL/min/1. 73m2 10/20/2025 4:59 PM [facility] Comment:Calculation based on the Chronic Kidney Disease Epidemiology Collaboration (CKD-EPI) equation refit without adjustment for race. BUN/Creatinine Ratio 17.2 10/20/2025 4:59 PM [facility] Calcium 9.0 8.5 - 10.5 mg/dL 10/20/2025 4:59 PM [facility] AST (SGOT) 16 10 - 42 unit/L 10/20/2025 4:59 PM [facility] ALT (SGPT) 16 10 - 60 unit/L 10/20/2025 4:59 PM [facility] Alkaline Phosphatase 74 42 - 121 unit/L 10/20/2025 4:59 PM [facility] Total Protein 6.7 6.0 - 8.0 g/dL 10/20/2025 4:59 PM [facility] Albumin 4.3 3.2 - 5.0 g/dL 10/20/2025 4:59 PM [facility] Total Bilirubin 0.4 0.0 - 1.4 mg/dL 10/20/2025 4:59 PM [facility] Blood Venous blood specimen / Unknown Venipuncture / Unknown 10/20/2025 11:21 AM EST 10/20/2025 11:21 AM EST Nehal SANTO LAB BLOOD ORDERABLES Fin al Result [facility] [address] [place] [address], [place] [phone] * Magnesium (10/20/2025 11:21 AM EST) Magnesium 2.0 1.9 - 2.6 mg/dL 10/20/2025 4:59 PM EST [facility] Blood Venous blood specimen / Unknown Venipuncture / Unknown 10/20/2025 11:21 AM EST 10/20/2025 11:21 AM EST Nehal SANTO LAB BLOOD ORDERABLES Fin al Result Performing Organization Address City/[facility]/ZIP Co de Phone Number [facility] [address] [place] [address], [place] [phone] documented in this encounter Visit Diagnoses Diagnosis Bilateral leg cramps documented in this encounter Additional Health Concerns Assessment Noted Time PHQ-9 Depression Total Score: 21 025 10:02 AM EST documented as of this encounter Care Teams Box Blank Machine Operator Helper Relationship Specialty Start Date End Date Rao Pan MD [address] [place] [address] PCP - General Internal Medicine 05/09/22 documented as of this encounter
--- NOTE | 2025-10-25 13:42 | A.OFFVIS_ITS ---
Vital Signs 10/25/25 13:42 Weight 173 lb Intake Visit Reasons: OV - Rt RTC Revision 09/23/24 - Pain and Stiffness Intake Note: Yandy is a 50 year old right hand dominant female who presents today for a follow up of her right shoulder. Right RTC Repair Revision 09/23/24.Patient reports that her ROM is decreasing, feels a sharp pain with lifting the arm above shoulder height and an overall weakness of the right arm. She is using a heating pad and advil for her pain. Allergies cephalexin (From KEFLEX) Allergy (Intermediate, Verified 10/25/25 13:43) HIVES Penicillins Allergy (Intermediate, Verified 10/25/25 13:43) HIVES poison alex extract Adverse Reaction (Verified 10/25/25 13:43) Rash TAPE,PAPER Allergy (Intermediate, Uncoded 07/14/25 14:58) REDNESS HPI HPI OV - Rt RTC Revision 09/23/24 - Pain and Stiffness: Details: Yandy is a 50 year old right hand dominant female who presents today for a follow up of her right shoulder. Right RTC Repair Revision 09/23/24.Patient reports that her ROM is decreasing, feels a sharp pain with lifting the arm above shoulder height and an overall weakness of the right arm. She is using a heating pad and advil for her pain. 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 She has returned to work in [employer] and very active does not know if she did not do her shoulder but he has been bothering her. She has physical therapy set up and I would recommend that she had 10 at and see me back in 6 weeks after PT. If her pain is still present that we may consider MRI. I would not inject with steroids given that she has had 2 repairs and has good range of motion and only mild weakness Coding Level of Care Code Est Pt Level 3 (76465) Diagnoses Status post right rotator cuff repair Z98.890
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
--- OUTSIDE RECORDS SUMMARY | 2025-10-25 22:19 | XMS_ITS | Encounter Summary ---
Author Organization [employer] Address [address] [place] [address] [address] [place] [address] Care Team Providers Care Information Officer Name Role Phone Unavailable Primary Care Provider Unavailabl e Reason for Visit * Reason Onset Date Comments appt for rct 08/12/2023 Encounter Details Date Type Department Care Team ([facility] st Contact Info) Description 08/12/2023 Telephone [facility] [address] [place] [address] Remy Trejo, DDS [address] [place] [address] appt for rct Social History Tobacco Use [...]
--- OUTSIDE RECORDS SUMMARY | 2025-10-25 22:19 | XMS_ITS | Encounter Summary ---
Author Organization [facility] Address [address] [place] [address] [address] [address] Care Team Providers Care Manager Food Beverage Name Role Phone Unavailable Primary Care Provider Unavailabl e Encounter Details Date Type Department Care Team (Latest Contact Info) Description 03/27/2019 Abstract [facility] CONVERSIONS Dental, Provider, DDS Social History Tobacco [...]
--- OUTSIDE RECORDS SUMMARY | 2025-10-25 22:19 | XMS_ITS | Encounter Summary ---
Author Organization [employer] [facility] Address [address] [place] [address] [address] [address] Care Team Providers Care Pediatric Medical Assistant Name Role Phone Unavailable Primary Care Provider Unavailabl e Encounter Details Date Type Department Care Team (Latest Contact Info) Description 05/04/2021 Abstract [facility] CONVERSIONS Dental, Provider, DDS Social History Tobacco [...]
--- OUTSIDE RECORDS SUMMARY | 2025-10-25 22:19 | XMS_ITS | Encounter Summary ---
Author Organization [facility] Address [address] [place] [address] [address] [address] Care Team Providers Care Chemical Economist Name Role Phone Unavailable Primary Care Provider Unavailabl e Encounter Details Date Type Department Care Team (Latest Contact Info) Description 06/21/2022 Abstract [facility] CONVERSIONS Dental, Provider, DDS Social History [...]
--- OUTSIDE RECORDS SUMMARY | 2025-10-25 22:20 | XMS_ITS | Encounter Summary ---
Author Organization [facility] Address [address] [place] [address] Care Team Providers Care Cell Support Operator Name Role Phone Rao Pan MD Primary Care Provider [phone] Encounter Details Date Type Department Care Team (Late Contact Info) Description 09/21/2025 Results Follow-Up Adult [address] [phone] Rao Pan MD [address] [place] [address] Social History Tobacco Use Types Packs/Day Years [...] Encounters Date Type Department Care Team (Late Contact Info) Description 10/26/2025 9:00 AM EST Office Visit Adult [address] [phone] Nehal Carlos PA [address] [place] [address] documented as of this encounter Visit Diagnoses Not on filedocumented in this encounter Care Teams Cell Support Operator Relationship Specialty Start Date End Date Rao Pan MD [address] [place] [address] PCP - General Internal Medicine 05/09/22 documented as of this encounter
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
== END 2025-10-25 14:31 | disposition home or self-care (01) ==
LOC: HO.HOS 13:34
PROVIDERS: PCP Pediatrics; Visit Provider Orthopaedic Surgery
DX: Z47.89 Encounter for other orthopedic aftercare (principal); Z98.890 Other specified postprocedural states
CPT/HCPCS: 99213

== ENCOUNTER → 2025-10-25 13:34 | Outpatient (BNVA) | payer MEDICAID, SELFPAY | PROVIDERS: PCP Pediatrics; Visit Provider Orthopaedic Surgery | DX: M25.511 Pain in right shoulder (principal); M25.611 Stiffness of right shoulder, not elsewhere classified; Z98.890 Other specified postprocedural states | CPT/HCPCS: 99212 ==